=== PATIENT | male | born 1960 | race Two or more races ===

== ENCOUNTER 2021-08-14 07:48 | Outpatient (REF) | payer OTHER, SELFPAY ==
--- NOTE | ~2021-08-14 | US_ITS ---
EXAMINATION: US ABDOMEN COMPLETE CLINICAL INFORMATION: Abnormal levels of other serum enzymes. COMPARISON: None TECHNIQUE: Real-time imaging of the abdominal viscera. FINDINGS: PANCREAS: Visualized proximal pancreas is normal. The tail of the pancreas is obscured by bowel gas. ABDOMINAL AORTA: Portions of the proximal aorta are obscured by bowel gas. The visualized mid to distal aorta is normal in caliber. INFERIOR VENA CAVA: Visualized portions are normal. LIVER: Normal. The liver is normal in size. The liver contour is normal. Parenchymal echogenicity is normal. No focal hepatic lesion. There is no intrahepatic biliary duct dilatation seen. GALLBLADDER: Normal. The gallbladder is physiologically distended without evidence of stones, sludge, polyps, wall thickening or pericholecystic fluid. COMMON BILE DUCT: Normal in caliber measuring 0.3 cm in diameter. RIGHT KIDNEY: Normal. No hydronephrosis. No renal calculi or focal parenchymal lesions. The kidney measures 13.1 cm in maximum dimension. LEFT KIDNEY: 1.1 cm anechoic cyst of the upper pole of the left kidney. No hydronephrosis or renal calculi. The kidney measures 12.3 cm in maximum dimension. SPLEEN: Normal. The spleen measures 12.3 cm in maximum dimension. FREE FLUID: None. US/US abdomen complete IMPRESSION: Normal sonographic appearance of the liver and biliary tree.
== END 2021-08-14 07:49 | disposition home or self-care (01) ==
LOC: HO.US 07:48
PROVIDERS: Visit Provider Physician Assistant
DX: R74.8 Abnormal levels of other serum enzymes (principal)
CPT/HCPCS: 76700

== ENCOUNTER 2021-09-09 08:01 | Outpatient (REF) | payer OTHER, SELFPAY ==
[2021-09-09 10:15] LABS: Estimated Average Glucose 114 mg/dL; Hemoglobin A1c % 5.6 %
[2021-09-09 11:11] LABS: Alanine Aminotransferase 31 U/L (0-40); Albumin Level 4.9 g/dL (3.5-5.0); Alkaline Phosphatase 75 U/L (39-117); Anion Gap 11 (12-20); Aspartate Amino Transferase 33 U/L (5-37); Bilirubin Total 0.5 mg/dL (0.0-1.0); Blood Urea Nitrogen 18 mg/dL (9-16); Calcium 9.9 mg/dL (8.4-10.2); Carbon Dioxide 28 mmol/L (22-29); Chloride 104 mmol/L (96-108); Cholesterol 182 mg/dL; Estimated Glomerular Filt Rate > 60; Glucose Fasting 109 mg/dL (60-99); HDL Cholesterol 33 mg/dL; LDL Cholesterol Calculated 113 mg/dl; Potassium 5.1 mmol/L (3.3-5.1); Sodium 138 mmol/L (135-145); Total Protein 7.9 g/dL (6.5-8.0); Triglycerides 183 mg/dL
== END 2021-09-09 08:02 | disposition home or self-care (01) ==
LOC: HO.LAB 08:01
PROVIDERS: PCP Physician Assistant; Visit Provider Physician Assistant
DX: E78.1 Pure hyperglyceridemia (principal); I10 Essential (primary) hypertension
CPT/HCPCS: 36415; 80053; 80061; 83036; 84443

== ENCOUNTER 2021-12-23 07:58 | Outpatient (REF) | payer OTHER, SELFPAY ==
[2021-12-23 08:46] LABS: Hematocrit 43.5 % (42.0-52.0); Mean Corpuscular HGB Conc 34.5 g/dl (31.0-36.0); Mean Corpuscular Hemoglobin 32.5 pg (27.0-33.0); Mean Corpuscular Volume 94.2 fL (80.0-98.0); Mean Platelet Volume 9.3 fL (9.4-12.4); Platelet Count 218 X10*3/uL (160-400); Red Blood Count 4.62 X10*6/uL (4.60-5.80); Red Cell Distribution Width 12.1 % (11.0-16.0); White Blood Count 6.4 X10*3/uL (4.8-10.8)
[2021-12-23 08:53] LABS: Estimated Average Glucose 117 mg/dL; Hemoglobin A1c % 5.7 %
[2021-12-23 09:08] LABS: Alanine Aminotransferase 25 U/L (0-40); Albumin Level 4.6 g/dL (3.5-5.0); Alkaline Phosphatase 71 U/L (39-117); Anion Gap 14 (12-20); Aspartate Amino Transferase 28 U/L (5-37); Bilirubin Total 0.8 mg/dL (0.0-1.0); Blood Urea Nitrogen 18 mg/dL (9-16); Calcium 9.7 mg/dL (8.4-10.2); Carbon Dioxide 25 mmol/L (22-29); Chloride 103 mmol/L (96-108); Estimated Glomerular Filt Rate > 60; Glucose Fasting 101 mg/dL (60-99); Potassium 4.4 mmol/L (3.3-5.1); Sodium 138 mmol/L (135-145); Total Protein 7.5 g/dL (6.5-8.0)
[2021-12-23 09:33] LABS: Prostate Specific Antigen Scr 3.27 ng/mL (<0.05-4.0); TSH reflex Free T4 1.56 uIU/mL (0.32-4.0)
[2021-12-23 09:36] LABS: Creatinine Urine 104.63 mg/dL; Microalbum/Creatinine Ratio Ur 30.5 ug/mg cr
== END 2021-12-23 07:59 | disposition home or self-care (01) ==
LOC: HO.LAB 07:58
PROVIDERS: PCP Physician Assistant; Visit Provider Physician Assistant
DX: Z12.5 Encounter for screening for malignant neoplasm of prostate (principal); I10 Essential (primary) hypertension
CPT/HCPCS: 36415; 80053; 82043; 83036; 84153; 84443; 85027

== ENCOUNTER 2022-05-31 06:21 | Day surgery (SDC) | payer OTHER, SELFPAY ==
[2022-05-29 10:14] VITALS: BMI 30.9
--- NOTE | 2022-05-30 08:33 | P.CONAN_ITS ---
Documented by User: Jessa Romeo NP 05/30/22 08:34 HPI - Anesthesia Eval Consult details Narrative: 61yo M for Colonoscopy PMFSH Active Problems Active Problems: All Active Problems (Updated 12/20/21 @ 13:41 by Nilay Hammer PA-C) Urinary frequency (Acute) Elevated fasting blood sugar (Acute) Elevated liver enzymes (Acute) Colon polyp (Acute) Annual physical exam (Acute) Obese (Acute) Abdominal bloating (Acute) Hypertriglyceridemia (Acute) HTN (hypertension) (Acute) Past Medical History Medical History (Updated 05/31/22 @ 06:28 by Shakira Hernandez, RN) HTN (hypertension) Hx of renal calculi Hypertriglyceridemia Family History Family History (Updated 05/07/22 @ 13:46 by Nilay Hammer PA-C) Father Advanced cardiac disease Mother CAD (coronary artery disease) Diabetes Brother Diabetes Multiple myeloma Prostate cancer Surgical History Surgical History (Updated 05/31/22 @ 06:29 by Shakira Hernandez, RN) History of appendectomy History of esophagogastroduodenoscopy (EGD) History of inguinal hernia repair Hx of colonoscopy Hx of cystoscopy Social History Social History (Updated 05/07/22 @ 13:47 by Nilay Hammer PA-C) Housing: House Alcohol intake: never Patient Tobacco Use Status: Never used Tobacco e-Cigarette/Vaping Use: Never Used Second Hand Smoke Exposure: No Use of substances other than those prescribed or required for medical reasons: No Advance Directives: No Advance Directives Information Provided: Yes service: No Current occupational status: employed 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 Cognitive needs: No Hearing needs: No Vision needs: Yes Meds Allergies Allergy/AdvReac Type Severity Reaction Status Date / Time No Known Allergies Allergy Mild NONE Verified 05/07/22 13:42 Exam Exam Date and Time: May 30, 2022 0833 Height,Weight and Vital Signs: Height 5 ft 11 in Weight 100.698 kg Pertinent Lab Results Pertinent Lab Results: Laboratory Tests 12/23/21 12/23/21 08:21 08:21 WBC 6.4 Hgb 15.0 Hct 43.5 Plt Count 218 Sodium 138 Potassium 4.4 Chloride 103 Carbon Dioxide 25 BUN 18 H Creatinine 0.84 Assessment and Plan Assessment Anesthesia Assessment: Chart Reviewed Documented by User: Carole Liao MD 05/31/22 09:33 PMFSH Past Medical History Medical History (Updated 05/31/22 @ 06:28 by Shakira Hernandez, RN) HTN (hypertension) Hx of renal calculi Hypertriglyceridemia Family History Family History (Updated 05/07/22 @ 13:46 by Nilay Hammer PA-C) Father Advanced cardiac disease Mother CAD (coronary artery disease) Diabetes Brother Diabetes Multiple myeloma Prostate cancer Family history of problems with anesthesia: No Surgical History Surgical History (Updated 05/31/22 @ 06:29 by Shakira Hernandez RN) History of appendectomy History of esophagogastroduodenoscopy (EGD) History of inguinal hernia repair Hx of colonoscopy Hx of cystoscopy History of Problems with Anesthesia: No Social History Social History (Updated 05/07/22 @ 13:47 by Nilay Hammer PA-C) Housing: House Alcohol intake: never Patient Tobacco Use Status: Never used Tobacco e-Cigarette/Vaping Use: Never Used Second Hand Smoke Exposure: No Use of substances other than those prescribed or required for medical reasons: No Advance Directives: No Advance Directives Information Provided: Yes service: No Current occupational status: employed 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 Cognitive needs: No Hearing needs: No Vision needs: Yes Meds Allergies Allergy/AdvReac Type Severity Reaction Status Date / Time No Known Allergies Allergy Mild NONE Verified 05/07/22 13:42 Exam Airway Mallampati Class: II TM Dist: >3cm Neck ROM: Full Loose/Missing/Broken Teeth: No Heart: rr Lungs: cta Assessment and Plan Final Anesthetic Review Family History of Problems with Anesthesia: No History of Problems with Anesthesia: No NPO: Yes ASA Class: II Final Preanesthetic Review: No Changes in Pt Med Stat, Meds/Allgs Chart Reviewed and Consent Obtained/Reviewed Patient Risk: Low Procedure Risk: Low Anesthetic Plan Anesthetic Plan: MAC: Disposition: Standard PACU
[2022-05-31 06:34] VITALS: BP 152/92; PULSE 87; RESP 15; TEMP 36.7; O2SAT 97
[2022-05-31] MEDS: Lactated Ringers 1,000 ML 100 ML IVCONT (06:52)
--- NOTE | 2022-05-31 07:43 | MHC.SHP ---
Pre-Procedural Eval Section A Date of Service: 05/31/22 Section B Chief Complaint: Personal history of colonic polyps Details of Present Illness: Surg hx: History of appendectomy History of esophagogastroduodenoscopy (EGD) History of inguinal hernia repair Hx of colonoscopy Relevant Family History (Specify if Yes): No Relevant Social History: None Present Medications: see Short Stay Collaborative assessment Allergies: Allergies Allergy/AdvReac Type Severity Reaction Status Date / Time No Known Allergies Allergy Mild NONE Verified 05/07/22 13:42 Review of Systems Review of Systems Comment: Ten point ROS negative Exam Exam Comment: Gen appear: No acute distress HEENT: no icterus Chest: No overt resp distress Abd: soft, nontender, nondistended Psych: Stable affect, answering questions appropriately Neuro: A/Ox3 noted to move all extremities spontaneously Ext: no peripheral edema Plan Diagnosis/Plan: Unchanged I have reviewed the history and physical and performed a pertinent physical examination on my patient. No changes have occurred unless specified. Time Spent With Patient Time: Total time managing care of this patient today ____ minutes.
--- NOTE | 2022-05-31 07:44 | P.OP_ITS ---
Operative Note Operative Note Date of Service: 05/31/22 Narrative: Procedure: Colonoscopy Indication: Personal history of polyps Endoscopist: Tammi Turner MD Anesthesia Provider: Dr Carole Liao Anesthesia type: MAC Instrument: Olympus [id number]-[id number] Consent: Indication, risks vs benefits, and alternatives were discussed with the patient who gave written informed consent to proceed. EKG, pulse, pulse oximetry and blood pressure were monitored throughout the procedure. Please see anesthesia flowsheet. Procedure: The patient was brought to the procedure room and placed in the left lateral decubitus position. IV medications were administered by the anesthesia provider in attendance. A digital rectal exam was performed which was normal. A distal attachment cap was affixed to the tip of the scope and the colonoscope was then inserted through the anus and advanced through the colon to the cecum at 85 cm,and terminal ileum. Mucosa was carefully examined under high definition white light as the instrument was slowly withdrawn in a retrograde panoramic fashion. Retroflexion was performed in rectum. The procedure was not difficult. There were no immediate obvious complications. The quality of the prep was BBPS: 2+2+2 = adequate Withdrawal time 16 minutes. Limitations: No limitations. Findings: Mucosa: Normal to cecum and terminal ileum. Protruding lesions: * 3 sessile polyp of size 3-5 mm in ascending colon. Cold snare polypectomy was performed. The polyps were completely removed and retrieved. * Large internal hemorrhoids without stigmata of recent bleeding. Impression: 1. Normal colon mucosa 2. Total of 3 polyps removed from ascending colon. 3. Internal hemorrhoids Recommendations: - Follow path results. - Repeat colonoscopy in 3-5 years depending on results.
--- NOTE | 2022-05-31 08:19 | PC.NURSE ---
Report given to Dennis Guardado RN at 0740 - time when patient left [facility] into endoscopy
[2022-05-31 08:24] VITALS: BP 124/68; PULSE 80; RESP 16; TEMP 36.6; O2SAT 95
[2022-05-31 08:39] VITALS: BP 115/76; PULSE 85; RESP 20; O2SAT 96
[2022-05-31 08:53] VITALS: BP 120/78; PULSE 78; RESP 16; TEMP 36.6; O2SAT 98
== END 2022-05-31 09:37 | disposition home or self-care (01) ==
PROVIDERS: PCP Physician Assistant; Visit Provider Internal Medicine
PROC: 0DJD8ZZ Inspection of Lower Intestinal Tract, Via Natural or Artificial Opening Endoscopic (ICD-10-PCS; CPT 45378; principal; 2022-05-31 07:30)
DX: Z12.11 Encounter for screening for malignant neoplasm of colon (principal); D12.2 Benign neoplasm of ascending colon; K64.8 Other hemorrhoids; Z86.010 Personal history of colon polyps; I10 Essential (primary) hypertension
CPT/HCPCS: 45385; 88305; J2250; J2405

== ENCOUNTER → 2022-08-01 15:50 | Outpatient (BNVA) | payer OTHER, SELFPAY | PROVIDERS: PCP Physician Assistant; Visit Provider Internal Medicine ==

== ENCOUNTER 2022-10-31 07:29 | Outpatient (REF) | payer OTHER, SELFPAY ==
[2022-10-31 07:47] LABS: Hematocrit 42.1 % (42.0-52.0); Hemoglobin 14.4 g/dl (14.0-18.0); Mean Corpuscular HGB Conc 34.2 g/dl (31.0-36.0); Mean Corpuscular Hemoglobin 32.5 pg (27.0-33.0); Platelet Count 201 X10*3/uL (160-400); Red Blood Count 4.43 X10*6/uL (4.60-5.80); Red Cell Distribution Width 12.6 % (11.0-16.0); White Blood Count 7.8 X10*3/uL (4.8-10.8)
[2022-10-31 08:16] LABS: Alanine Aminotransferase 32 U/L (0-40); Albumin Level 4.5 g/dL (3.5-5.0); Alkaline Phosphatase 59 U/L (39-117); Anion Gap 11 (12-20); Aspartate Amino Transferase 38 U/L (5-37); Bilirubin Total 0.7 mg/dL (0.0-1.0); Blood Urea Nitrogen 16 mg/dL (9-16); Calcium 9.4 mg/dL (8.4-10.2); Carbon Dioxide 26 mmol/L (22-29); Chloride 107 mmol/L (96-108); Cholesterol 150 mg/dL (<200); Estimated Glomerular Filt Rate > 60; Glucose Fasting 107 mg/dL (60-99); HDL Cholesterol 31 mg/dL (>40); LDL Cholesterol Calculated 86 mg/dL (<100); Potassium 4.6 mmol/L (3.3-5.1); Sodium 139 mmol/L (135-145); Total Protein 7.4 g/dL (6.5-8.0); Triglycerides 166 mg/dL (<150)
[2022-10-31 08:30] LABS: Prostate Specific Antigen Scr 6.84 ng/mL (<0.05-4.0)
[2022-10-31 08:33] LABS: TSH reflex Free T4 1.58 uIU/mL (0.32-4.0)
[2022-10-31 08:38] LABS: Creatinine Urine 160.21 mg/dL; Microalbum/Creatinine Ratio Ur 30.5 ug/mg cr (<30)
== END 2022-10-31 07:30 | disposition home or self-care (01) ==
LOC: HO.LAB 07:29
PROVIDERS: PCP Physician Assistant; Visit Provider Physician Assistant
DX: Z12.5 Encounter for screening for malignant neoplasm of prostate (principal); I10 Essential (primary) hypertension; E78.1 Pure hyperglyceridemia
CPT/HCPCS: 36415; 80053; 80061; 82043; 82570; 84153; 84443; 85027

== ENCOUNTER 2022-11-07 15:02 | Outpatient (AMB) | payer OTHER, SELFPAY ==
[2022-11-07 15:25] VITALS: BP 114/82; PULSE 88; RESP 16; O2SAT 97; BMI 30.8
--- NOTE | 2022-11-07 15:25 | A.OFFPC_ITS ---
Vital Signs 11/07/22 15:25 Height 5 ft 10 in Weight 214 lb 6 oz BMI 30.8 BP 114/82 Blood Pressure Location Lt brachial Position Sitting Respiration 16 Pulse 88 Pulse Source Pulse Oximeter Pulse Oximetry (%) 97 Oxygen Delivery Method Room Air Intake Visit Reasons: f/u HLD/ HTN Intake Note: Pt is here for F/U HTN and labs results. Building Architect Required: No Accompanied by: Self / Same As Patient Allergies No Known Allergies Allergy (Mild, Verified 11/07/22 15:48) NONE Medication List - Last Reconciled 11/07/22 by Nilay Hammer PA-C gemfibrozil 600 mg PO BID 90 days lisinopril-hydrochlorothiazide 20-12.5 mg 1 tab PO DAILY 90 days Tobacco use date assessed: 05/07/22 Dental Screening Dental Screen Date: 11/07/22 Did you have a dental visit in the last 12 months?: Yes Did you have a dental problem in the last 6 months where you did not have access to dental care?: No Was dental information given to patient?: Patient has dentist HPI f/u HLD/ HTN HPI Details Patient is a 62 year old male here today for follow-up visit. .? Patient's past medical history signif icant for hypertension and hyperlipidemia. .. Hypertension:? Patient continues Take his BP at home and reports 135-140 systolic.? Patient denies any headaches, chest discomfort palpitations.. PLAN: ? Will work extensively weight reduction and low-sodium diet with taking his medication.? Will continue to his blood pressure at current dose. .. Hypertriglyceridemia:? Continues to work extensively on lifestyle to reduce his eye cholesterol foods.? He has unfortunately gained weight since last office visit.? Continues on gemfibrozil 600 mg daily. Most recent triglycerides at 180 .. Labs: Reviewed labs with patient and noted improved triglycerides and a slight elevation in his fasting blood sugar. A1c is 6.0. Elevated PSA- noted elevated PSA as compared to fall. He does report having a brother whom was diagnosed with prostate cancer. He denies any urinary symptoms. PLAN: Due to patient's family history and recent elevation in PSA will refer to Urology. Laboratory Tests 09/09/21 09/09/21 12/23/21 08:59 08:59 08:21 Hgb Fasting Glucose 109 H 101 H Hemoglobin A1c % 5.7 Hgb A1c (Clinic) Triglycerides 183 LDL Cholesterol, C alc 113 PSA Screen Urine Microalbumin 12/23/21 10/31/22 10/31/22 08:21 07:38 07:38 Hgb 14.4 Fasting Glucose Hemoglobin A1c % Hgb A1c (Clinic) Triglycerides LDL Cholesterol, C alc 86 PSA Screen 3.27 Urine Microalbumin 10/31/22 10/31/22 10/31/22 07:38 07:38 07:40 Hgb Fasting Glucose 107 H Hemoglobin A1c % Hgb A1c (Clinic) Triglycerides 166 H LDL Cholesterol, C alc PSA Screen 6.84 H Urine Microalbumin 49.0 11/07/22 15:24 Hgb Fasting Glucose Hemoglobin A1c % Hgb A1c (Clinic) 6.0 Triglycerides LDL Cholesterol, C alc PSA Screen [facility] Medical History HTN (hypertension) Hx of renal calculi Hypertriglyceridemia Surgical History Hx of cystoscopy History of esophagogastroduodenoscopy (EGD) Hx of colonoscopy History of appendectomy History of inguinal hernia repair Family History Father Advanced cardiac disease Mother CAD (coronary artery disease) Diabetes Brother Diabetes Multiple myeloma Prostate cancer Social History Housing: House Alcohol intake: never Patient Tobacco Use Status: Never used Tobacco e-Cigarette/Vaping Use: Never Used Second Hand Smoke Exposure: No service: No Current occupational status: employed 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 Dennis Mcdowell, Carissa Mcclellan, Kaiden Singh and colleagues, with an educational flaquito from [employer]. Review of Systems Const Denies headache(s) Eyes Denies loss of vision ENT Denies vertigo, Denies dizziness, Denies headache(s) and Denies sore throat Card Denies chest pain, Denies leg edema and Denies lightheadedness Resp Denies cough, Denies hemoptysis and Denies wheezing GI Denies abdominal pain, Denies melena, Denies constipation, Denies diarrhea and Denies vomiting Denies dysuria, Denies urinary frequency and Denies urinary urgency Musc Denies arthralgias, Denies joint swelling, Denies numbness and Denies tingling Neuro Denies Abnormal speech present, Denies behavioral changes, Denies vertigo, Denies dizziness, Denies headache(s), Denies loss of vision, Denies memory loss, Denies numbness and Denies tingling Psych Denies anxiety, Denies behavioral changes, Denies depression, Denies memory loss and Denies panic attacks Michael/Lymph Denies easy bleeding and Denies easy bruising Aller/Immun Denies wheezing Physical exam (Primary Care) Vital Signs: Last Vital Signs Pulse 88 11/07/22 15:25 Resp 16 11/07/22 15:25 BP 114/82 11/07/22 15:25 Pulse Ox 97 11/07/22 15:25 Oxygen Delivery Method Room Air 11/07/22 15:25 BMI result Body Mass Index 30.8 BMI Assessment/Plan discussion: High Tobacco/Smoking Status: Tobacco use Status Tobacco use date assessed 05/07/22 11/07/22 15:25 Patient Tobacco Use Status Never used Tobacco 11/07/22 15:25 e-Cigarette/Vaping Use Never Used 11/07/22 15:25 Thrive Assessment: Date of Thrive Assessment Date Thrive assessed 09/26/21 11/07/22 15:25 Const General: healthy appearing, no acute distress, alert and awake Nutritional Appearance: well nourished Orientation/consciousness: oriented to person, oriented to place and oriented to time [facility] Ears: TM's normal bilaterally General nose exam: Normal nasal mucous membranes and turbinates present Eyes Conjunctivae: conjunctivae normal Sclerae: sclerae normal Pupils: Equal, round and reactive pupils present Neck Neck: Yes no lymphadenopathy and Yes no JVD Thyroid: Thyroid normal Carotids: no bruits Resp Effort & Inspection: normal respiratory effort and not tachypneic Auscultation: no crackles, no rales, no rhonchi and no wheezes Cardio Rate: regular rate Rhythm: regular rhythm Heart sounds: no murmurs and normal S1 and S2 GI Palpation (GI): Soft to palpation, nontender, no hepatomegaly and no splenomegaly Auscultation: normal bowel sounds Skin General skin exam: no rashes or lesions noted and dry skin Neuro General: oriented to person, oriented to place and oriented to time Cranial nerves: Yes Equal, round and reactive pupils present Speech: No Abnormal speech present Gait exam (Neuro): Normal gait present Motor exam (neuro): no tremor noted Extrem Right upper extremity: full ROM Left upper extremity: full ROM Right lower extremity: full ROM; no edema Left lower extremity: full ROM; no edema Psych Mental Status: mental status grossly normal Speech and movement: Normal speech and movement present Affect: normal affect Attitude: cooperative Thought process: Normal thought process present Results AMB Hemoglobin A1c AMB Hemoglobin A1c 6.0 % Last Edit by JEAN Kingston on 11/07/22 15:45 Results Reviewed Results Reviewed: Laboratory Last Values Hgb A1c (Clinic) 6.0 % (4.0-6.0) 11/07/22 15:24 Assessment and Plan Assessment & Plan (1) HTN (hypertension): Code(s): I10 - Essential (primary) hypertension Qualifiers: Hypertension type: essential hypertension Qualified Code(s): I10 - Essential (primary) hypertension Plan: Patient's blood pressure acceptable today in office. Will continue current antihypertensive medications with goal blood pressure to be below 140/90 (2) Elevated PSA: Code(s): R97.20 - Elevated prostate specific antigen [PSA] Plan: Noted elevated PSA, doubled since December of 2021. Does have brother with prostate cancer. He denies any nocturia or weak urinary stream. Will refer to Urology for evaluation. (3) Hypertriglyceridemia: Code(s): E78.1 - Pure hyperglyceridemia Plan: Patient's most recent lipid panel stable. Will hold gemfibrozil as patient's triglycerides reasonable. Goal triglycerides to be below 300. (4) Obese: Code(s): E66.9 - Obesity, unspecified Qualifiers: Body mass index: BMI 32.0-32.9 Obesity classification: adult class 1 (BMI 30 - 34.9) Obesity type: due to excess calories Serious obesity comorbidity presence: with serious comorbidity Qualified Code(s): E66.09 - Other obesity due to excess calories; Z68.32 - Body mass index [BMI] 32.0-32.9, adult Plan: Patient does understand his BMI is over 30 will work on being more physically active an Adapta better eating habits to reduce his weight. (5) Impaired glucose metabolism: Code(s): R73.09 - Other abnormal glucose Plan: Patient's most recent fasting blood sugar 107 and A1c is 6.0 today in office. He will work on low carbohydrate and low sugar diet. He is not interested in starting medication for his blood sugar at this time. Goal A1c is to be below 6.0. Orders: Orders AMB Hemoglobin A1c 11/07/22 R73.01 - Impaired fasting glucose Hemoglobin A1c Today E78.1 - Pure hyperglyceridemia, I10 - Essential (primary) hypertension, R73.09 - Other abnormal glucose Lipid Panel Today E78.1 - Pure hyperglyceridemia, I10 - Essential (primary) hypertension, R73.09 - Other abnormal glucose Prostate Specific Antigen Scr Today E78.1 - Pure hyperglyceridemia, I10 - Essential (primary) hypertension, R97.20 - Elevated prostate specific antigen [PSA], Z12.5 - Encounter for screening for malignant neoplasm of prostate Comprehensive [place]. Panel Fast Today E78.1 - Pure hyperglyceridemia, I10 - Essential (primary) hypertension, R73.09 - Other abnormal glucose Referrals Urology Referral R97.20 - Elevated prostate specific antigen [PSA] Medications: Discontinued gemfibrozil Discontinued Reason: Doctor's Order 600 mg PO BID 90 days 180 tabs 1RF E78.1 - Pure hyperglyceridemia Coding Level of Care Code Est Pt Level 4 (68481) Diagnoses Essential hypertension I10 Hypertension type: essential hypertension Elevated PSA R97.20 Hypertriglyceridemia E78.1 Class 1 obesity due to excess calories with serious comorbidity and body mass index (BMI) of 32.0 to 32.9 in adult E66.09; Z68.32 Body mass index: BMI 32.0-32.9 Obesity classification: adult class 1 (BMI 30 - 34.9) Obesity type: due to excess calories Serious obesity comorbidity presence: with serious comorbidity Impaired glucose metabolism R73.09
== END 2022-11-07 16:05 | disposition home or self-care (01) ==
PROVIDERS: Visit Provider Physician Assistant
DX: R73.01 Impaired fasting glucose (principal)
CPT/HCPCS: 83036; 99214

== ENCOUNTER 2023-01-15 12:33 | Outpatient (AMB) | payer OTHER, SELFPAY ==
--- NOTE | 2023-01-15 12:58 | A.OFFPC_ITS ---
Vital Signs 01/15/23 13:08 Height 5 ft 10 in Weight 208 lb BMI 29.8 BP 122/70 Blood Pressure Location Lt brachial Position Sitting Pulse 78 Pulse Source Pulse Oximeter Temp 95 F L Intake Visit Reasons: 01/28/23 for a prostatectomy. Intake Note: Patient is here for a Pre-op for prostatectomy scheduled with Tiffanie on 01/28/23 at the [facility]. 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 HPI Details Patient is a 62 year old male here today for preop visit.. Patient is due for total prostatectomy in January of 2023. This will be done at [facility] under general anesthesia. .? Patient's past medical history signif icant for hypertension and hyperlipidemia. Patient has no history of CVA, MO or Congestive heart failure. He is not on any anticoagulation or anti-platelet therapy. *Of note patient does have history of a bundle scarlett proc which was evident on EKG in May 2022. Today's EKG showing the same. Otherwise patient asymptomatic. .. Hypertension:? Blood pressure has been well controlled with current dose of lisinopril hydrochlorothiazide. Otherwise denies any headache, chest pain or dizziness. .. Hypertriglyceridemia:? Continues to work extensively on lifestyle to reduce his eye cholesterol foods.? He has unfortunately gained weight since last office visit.? Continues on gemfibrozil 600 mg daily. Most recent triglycerides at 180 Laboratory Tests 12/23/21 12/23/21 10/31/22 08:21 08:21 07:38 RBC 4.43 L Hgb 14.4 Fasting Glucose 101 H Hgb A1c (Clinic) PSA Screen 3.27 10/31/22 10/31/22 11/07/22 07:38 07:38 15:24 RBC Hgb Fasting Glucose 107 H Hgb A1c (Clinic) 6.0 PSA Screen 6.84 H Laboratory Tests 01/15/23 14:19 RBC 4.31 L Hgb 14.4 Creatinine 0.84 Hemoglobin A1c % 5.6 Cholesterol 169 PSA Screen 7.72 H TSH 1.98 PFSH Medical History (Updated 01/16/23 @ 08:16 by Nilay Hammer PA-C) HTN (hypertension) Hx of renal calculi Hypertriglyceridemia Surgical History Hx of cystoscopy History of esophagogastroduodenoscopy (EGD) Hx of colonoscopy History of appendectomy History of inguinal hernia repair Family History Father Advanced cardiac disease Mother CAD (coronary artery disease) Diabetes Brother Diabetes Multiple myeloma Prostate cancer Social History Housing: House Alcohol intake: never Patient Tobacco Use Status: Never used Tobacco e-Cigarette/Vaping Use: Never Used Second Hand Smoke Exposure: No service: No Current occupational status: employed 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 Cognitive needs: No Hearing needs: No Vision needs: Yes Questionnaire Thrive Questionnaire Date Thrive assessed: 01/15/23 I am a: Patient What is your living situation today?: I have a steady place to live Within the past 12 months, did the food you bought not last and you didn't have the money to get more?: Never true Within the past 12 months, did you worry whether your food would run out before you got money to buy more?: Never true Do you have trouble paying for medicines?: No Do you have trouble getting transportation to medical appointments?: No Do you have trouble paying your heating and electricity bill?: No Do you have trouble taking care of your child, family member or friend?: No Do you have trouble with day-to-day activities such as bathing, preparing meals, shopping, managing finances, etc.?: No Are you currently unemployed and looking for a job?: No Are you interested in more education?: No Please select the resources that you would like help with: None Currently or been in a relationship where the following occur: no concerns reported JACQUES-7 AMB Questionnaire JACQUES-7 Date JACQUES - 7 assessed: 05/07/22 Source: Developed by Drs. Dennis Mcdowell, Carissa Mcclellan, Kaiden Singh and colleagues, with an educational flaquito from [employer]. Review of Systems Const Denies headache(s) Eyes Denies loss of vision ENT Denies vertigo, Denies dizziness, Denies headache(s) and Denies sore throat Card Denies chest pain, Denies leg edema and Denies lightheadedness Resp Denies cough, Denies hemoptysis and Denies wheezing GI Denies abdominal pain, Denies melena, Denies constipation, Denies diarrhea and Denies vomiting Denies dysuria, Denies urinary frequency and Denies urinary urgency Musc Denies arthralgias, Denies joint swelling, Denies numbness and Denies tingling Neuro Denies Abnormal speech present, Denies behavioral changes, Denies vertigo, Denies dizziness, Denies headache(s), Denies loss of vision, Denies memory loss, Denies numbness and Denies tingling Psych Denies anxiety, Denies behavioral changes, Denies depression, Denies memory loss and Denies panic attacks Michael/Lymph Denies easy bleeding and Denies easy bruising Aller/Immun Denies wheezing Physical exam (Primary Care) Vital Signs: Last Vital Signs Temp 95 F L 01/15/23 13:08 Pulse 78 01/15/23 13:08 BP 122/70 01/15/23 13:08 BMI result Body Mass Index 29.8 Tobacco/Smoking Status: Tobacco use Status Tobacco use date assessed 05/07/22 01/15/23 12:58 Patient Tobacco Use Status Never used Tobacco 01/15/23 12:58 e-Cigarette/Vaping Use Never Used 01/15/23 12:58 Thrive Assessment: Date of Thrive Assessment Date Thrive assessed 01/15/23 01/15/23 13:11 Currently or been in a relationship where the following occur: no concerns reported Const General: healthy appearing, no acute distress, alert and awake Nutritional Appearance: well nourished Orientation/consciousness: oriented to person, oriented to place and oriented to time HENMT Ears: TM's normal bilaterally General nose exam: Normal nasal mucous membranes and turbinates present Eyes Conjunctivae: conjunctivae normal Sclerae: sclerae normal Pupils: Equal, round and reactive pupils present Neck Neck: Yes no lymphadenopathy and Yes no JVD Thyroid: Thyroid normal Carotids: no bruits Resp Effort & Inspection: normal respiratory effort and not tachypneic Auscultation: no crackles, no rales, no rhonchi and no wheezes Cardio Rate: regular rate Rhythm: regular rhythm Heart sounds: no murmurs and normal S1 and S2 GI Palpation (GI): Soft to palpation, nontender, no hepatomegaly and no splenomegaly Auscultation: normal bowel sounds Skin General skin exam: no rashes or lesions noted and dry skin Neuro General: oriented to person, oriented to place and oriented to time Cranial nerves: Yes Equal, round and reactive pupils present Speech: No Abnormal speech present Gait exam (Neuro): Normal gait present Motor exam (neuro): no tremor noted Extrem Right upper extremity: full ROM Left upper extremity: full ROM Right lower extremity: full ROM; no edema Left lower extremity: full ROM; no edema Psych Mental Status: mental status grossly normal Speech and movement: Normal speech and movement present Affect: normal affect Attitude: cooperative Thought process: Normal thought process present Office Procedures EKG Details: See scanned in document [id number], Complete Assessment and Plan Assessment & Plan (1) Pre-op evaluation: Code(s): Z01.818 - Encounter for other preprocedural examination Plan: Patient's low CV risk for needed procedure. Most recent labs and vitals today stable. EKG does show bundle-branch block which is similar to previous EKG in May 2022. Otherwise no cardiac symptoms. Blood pressure controlled. Patient is medically clear for needed prostectomy. (2) Elevated PSA: Code(s): R97.20 - Elevated prostate specific antigen [PSA] Plan: Due for total prostatectomy in 01/28/2023 (3) HTN (hypertension): Code(s): I10 - Essential (primary) hypertension Qualifiers: Hypertension type: essential hypertension Qualified Code(s): I10 - Essential (primary) hypertension Plan: Patient's hypertension well controlled with current dose of lisinopril hydrochlorothiazide. Goal blood pressures to remain below 140/90 Orders: Orders Basic Metabolic Panel 01/15/23 Z01.818 - Encounter for other preprocedural examination Complete Blood Count no Diff 01/15/23 Z01.818 - Encounter for other preprocedural examination AMB EKG-In Office Today Z01.818 - Encounter for other preprocedural examination Coding Level of Care Code Est Pt Level 4 (67183) Diagnoses Pre-op evaluation Z01.818 Elevated PSA R97.20 Essential hypertension I10 Hypertension type: essential hypertension CPT Codes EKG - CPT: 36516-[id number], Complete ([id number])
[2023-01-15 13:08] VITALS: BP 122/70; PULSE 78; TEMP 35; BMI 29.8
== END 2023-01-15 14:03 | disposition home or self-care (01) ==
PROVIDERS: PCP Physician Assistant; Visit Provider Physician Assistant
DX: Z01.818 Encounter for other preprocedural examination (principal); R97.20 Elevated prostate specific antigen [PSA]; I10 Essential (primary) hypertension
CPT/HCPCS: 93000; 99214

== ENCOUNTER 2023-01-15 14:09 | Outpatient (REF) | payer OTHER, SELFPAY ==
[2023-01-15 14:48] LABS: Hematocrit 41.2 % (42.0-52.0); Hemoglobin 14.4 g/dl (14.0-18.0); Mean Corpuscular Hemoglobin 33.4 pg (27.0-33.0); Mean Corpuscular Volume 95.6 fL (80.0-98.0); Mean Platelet Volume 9.4 fL (9.4-12.4); Platelet Count 202 X10*3/uL (160-400); Red Blood Count 4.31 X10*6/uL (4.60-5.80); Red Cell Distribution Width 12.3 % (11.0-16.0); White Blood Count 6.5 X10*3/uL (4.8-10.8)
[2023-01-15 15:03] LABS: Estimated Average Glucose 114 mg/dL; Hemoglobin A1c % 5.6 % (<6.0)
[2023-01-15 15:23] LABS: Alanine Aminotransferase 27 U/L (0-40); Albumin Level 4.7 g/dL (3.5-5.0); Alkaline Phosphatase 60 U/L (39-117); Anion Gap 13 (12-20); Aspartate Amino Transferase 32 U/L (5-37); Bilirubin Total 0.7 mg/dL (0.0-1.0); Blood Urea Nitrogen 20 mg/dL (9-16); Calcium 9.7 mg/dL (8.4-10.2); Carbon Dioxide 27 mmol/L (22-29); Chloride 102 mmol/L (96-108); Cholesterol 169 mg/dL (<200); Estimated Glomerular Filt Rate > 60; Glucose Fasting 86 mg/dL (60-99); Glucose Random 86 mg/dL (60-115); HDL Cholesterol 31 mg/dL (>40); LDL Cholesterol Calculated 94 mg/dL (<100); Sodium 138 mmol/L (135-145); Triglycerides 222 mg/dL (<150)
[2023-01-15 15:31] LABS: Prostate Specific Antigen Scr 7.72 ng/mL (<0.05-4.0)
[2023-01-15 15:40] LABS: TSH reflex Free T4 1.98 uIU/mL (0.32-4.0)
== END 2023-01-15 14:10 | disposition home or self-care (01) ==
LOC: HO.LAB 14:09
PROVIDERS: PCP Physician Assistant; Visit Provider Physician Assistant
DX: Z01.818 Encounter for other preprocedural examination (principal); Z12.5 Encounter for screening for malignant neoplasm of prostate; E78.1 Pure hyperglyceridemia; R73.09 Other abnormal glucose; I10 Essential (primary) hypertension
CPT/HCPCS: 36415; 80048; 80053; 80061; 83036; 84153; 84443; 85027

== ENCOUNTER 2023-11-02 07:48 | Outpatient (REF) | payer OTHER, SELFPAY ==
[2023-11-02 08:54] LABS: Hematocrit 39.8 % (42.0-52.0); Hemoglobin 13.8 g/dl (14.0-18.0); Mean Corpuscular HGB Conc 34.7 g/dl (31.0-36.0); Mean Corpuscular Hemoglobin 33.3 pg (27.0-33.0); Mean Corpuscular Volume 96.1 fL (80.0-98.0); Mean Platelet Volume 9.2 fL (9.4-12.4); Platelet Count 272 X10*3/uL (160-400); Red Blood Count 4.14 X10*6/uL (4.60-5.80)
[2023-11-02 09:31] LABS: Alanine Aminotransferase 28 U/L (0-40); Albumin Level 4.5 g/dL (3.5-5.0); Alkaline Phosphatase 84 U/L (39-117); Anion Gap 12 (12-20); Aspartate Amino Transferase 32 U/L (5-37); Bilirubin Total 0.3 mg/dL (0.0-1.0); Blood Urea Nitrogen 16 mg/dL (9-16); Calcium 10.1 mg/dL (8.4-10.2); Carbon Dioxide 26 mmol/L (22-29); Chloride 106 mmol/L (96-108); Cholesterol 148 mg/dL (<200); Estimated Glomerular Filt Rate > 60; Glucose Fasting 116 mg/dL (60-99); HDL Cholesterol 28 mg/dL (>40); LDL Cholesterol Calculated 84 mg/dL (<100); Potassium 4.4 mmol/L (3.3-5.1); Sodium 140 mmol/L (135-145); Total Protein 7.7 g/dL (6.5-8.0); Triglycerides 183 mg/dL (<150)
[2023-11-02 09:58] LABS: Prostate Specific Antigen Scr < 0.10 ng/mL (<0.05-4.0)
== END 2023-11-02 07:49 | disposition home or self-care (01) ==
LOC: HO.LAB 07:48
PROVIDERS: PCP Physician Assistant; Visit Provider Physician Assistant
DX: Z01.818 Encounter for other preprocedural examination (principal); Z12.5 Encounter for screening for malignant neoplasm of prostate; R97.20 Elevated prostate specific antigen [PSA]; E78.1 Pure hyperglyceridemia; I10 Essential (primary) hypertension; R73.09 Other abnormal glucose
CPT/HCPCS: 36415; 80053; 80061; 84153; 85027

== ENCOUNTER 2023-11-14 15:10 | Outpatient (AMB) | payer OTHER, SELFPAY ==
--- NOTE | 2023-11-14 15:20 | MHC.PC.OV ---
Vital Signs 11/14/23 15:24 Height 5 ft 10 in Weight 219 lb BMI 31.4 BP 130/80 Blood Pressure Location Lt brachial Position Sitting Pulse 84 Pulse Source Pulse Oximeter Pulse Oximetry (%) 97 Oxygen Delivery Method Room Air Intake Visit Reasons: Annual Exam Intake Note: Patient is here today for a physical. 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 Prostate cancer: Patient is status post total prostatectomy though unfortunately was found to have pelvic lymph node involvement and will be starting up with radiation in near future. He has been on Lupron injections which he reports some side effects (arthralgias and sweating). Patient continues to work full-time .. Hypertension:? Blood pressure has been well controlled with current dose of lisinopril hydrochlorothiazide. Otherwise denies any headache, chest pain or dizziness. .. Hypertriglyceridemia:? Continues to work extensively on lifestyle to reduce his eye cholesterol foods.? He has unfortunately gained weight since last office visit.? Continues on gemfibrozil 600 mg daily. Most recent triglycerides at 180. Colonoscopy: UTD with colonoscopy - Vaccine: Up-to-date with COVID vaccine, up-to-date with tetanus vaccine, declines flu vaccine. Laboratory Tests 01/15/23 11/02/23 14:19 08:04 Hgb 13.8 L Creatinine 0.76 Fasting Glucose 86 116 H Triglycerides 222 H 183 H LDL Cholesterol, C alc 94 84 PSA Screen 7.72 H < 0.10 PFSH Medical History HTN (hypertension) Hx of renal calculi Hypertriglyceridemia Surgical History Hx of cystoscopy History of esophagogastroduodenoscopy (EGD) Hx of colonoscopy History of appendectomy History of inguinal hernia repair Family History Father Advanced cardiac disease Mother CAD (coronary artery disease) Diabetes Brother Diabetes Multiple myeloma Prostate cancer Social History Housing: House Alcohol intake: never Patient Tobacco Use Status: Never used Tobacco e-Cigarette/Vaping Use: Never Used Second Hand Smoke Exposure: No service: No Current occupational status: employed 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 1. Little interest or pleasure in doing things: not at all 2. Feeling down, depressed, or hopeless: not at all 3. Trouble falling or staying asleep, or sleeping too much: not at all 4. Feeling tired or having little energy: not at all 5. Poor appetite or overeating: not at all 6. Feeling bad about yourself - or that you are a failure or have let yourself or your family down: not at all 7. Trouble concentrating on things, such as reading the newspaper or watching television: not at all 8. Moving or speaking so slowly that other people could have noticed. Or the opposite - being so fidgety or restless that you have been moving around a lot more than usual: not at all 9. Thoughts that you would be better off or of hurting yourself in some way: not at all Total score: 0 Depression Screening Interpretation: Negative Depression Screening Done: Yes 19198 - PHQ-9 Billing: Yes Source: Developed by Drs. Dennis Mcdowell, Carissa Mcclellan, Kaiden Singh and colleagues, with an educational flaquito from [employer]. Thrive Questionnaire Date Thrive assessed: 11/14/23 I am a: Patient What is your living situation today?: I have a steady place to live Within the past 12 months, did the food you bought not last and you didn't have the money to get more?: Never true Within the past 12 months, did you worry whether your food would run out before you got money to buy more?: Never true Do you have trouble paying for medicines?: No Do you have trouble getting transportation to medical appointments?: No Do you have trouble paying your heating and electricity bill?: No Do you have trouble taking care of your child, family member or friend?: No Do you have trouble with day-to-day activities such as bathing, preparing meals, shopping, managing finances, etc.?: No Are you currently unemployed and looking for a job?: No Are you interested in more education?: No Please select the resources that you would like help with: None Currently or been in a relationship where the following occur: No concerns reported THRIVE Score: 0 AUDIT C Alcohol Use Questionnaire (AUDIT-C) 1. How often do you have a drink containing alcohol?: Never 3. How often do you have six or more drinks on one occasion?: Never Total Score: 0 JACQUES-7 AMB Questionnaire JACQUES-7 Date JACQUES - 7 assessed: 11/14/23 Feeling nervous, anxious, or on edge: 0 = Not at all Not being able to stop or control worryin = Not at all Worrying too much about different things: 0 = Not at all Trouble relaxin = Not at all Being so restless that it is hard to sit still: 0 = Not at all Becoming easily annoyed or irritable: 0 = Not at all Feeling afraid as if something awful might happen: 0 = Not at all Total JACQUES-7 score (0-4 normal; 5-9 mild; 10-14 moderate; 15-21 severe): 0 Source: Developed by Drs. Dennis Mcdowell, Carissa Mcclellan, Kaiden Singh and colleagues, with an educational flaquito from [employer]. JACQUES-7 Assessment Billing JACQUES-7 Assessment Tool: JACQUES-7 Assessment 36010 Review of Systems Const Denies body aches, Denies chills, Denies excessive sweating, Denies fatigue, Denies fever(s) and Denies headache(s) Eyes Denies blurry vision ENT Denies dysphagia, Denies vertigo, Denies dizziness, Denies headache(s), Denies hearing loss and Denies tinnitus Card Denies chest pain, Denies chest pain with activity, Denies syncope, Denies irregular heart rhythm and Denies dyspnea Resp Denies chest congestion, Denies cough, Denies hemoptysis, Denies dyspnea and Denies wheezing GI Denies abdominal pain, Denies melena, Denies hematochezia, Denies coffee ground emesis, Denies dysphagia, Denies diarrhea, Denies nausea and Denies vomiting Denies difficulty urinating, Denies dysuria, Denies urinary frequency, Denies urinary hesitancy and Denies urinary urgency Musc Denies arthralgias, Denies limited range of motion, Denies muscle cramps and Denies muscle weakness Skin/Breast Denies rash and Denies skin ulcer Neuro Denies Abnormal speech present, Denies confusion, Denies vertigo, Denies dizziness, Denies syncope, Denies headache(s), Denies memory loss and Denies seizure-like activity Psych Denies anxiety, Denies confusion, Denies depression, Denies memory loss, Denies panic attacks and Denies paranoia Endo Denies excessive sweating, Denies fatigue, Denies flushing, Denies polydipsia and Denies polyuria Aller/Immun Denies wheezing Physical exam (Primary Care) Vital Signs: Last Vital Signs Pulse 84 11/14/23 15:24 BP 130/80 11/14/23 15:24 Pulse Ox 97 11/14/23 15:24 Oxygen Delivery Method Room Air 11/14/23 15:24 BMI result Body Mass Index 31.4 Tobacco/Smoking Status: Tobacco use Status Tobacco use date assessed 05/07/22 11/14/23 15:26 Patient Tobacco Use Status Never used Tobacco 11/14/23 15:26 e-Cigarette/Vaping Use Never Used 11/14/23 15:26 PHQ-9: PHQ-9 Score PHQ-9: Total score 0 11/14/23 15:37 Depression Screening Interpretation: Negative Thrive Assessment: Date of Thrive Assessment Date Thrive assessed 11/14/23 11/14/23 15:26 Currently or been in a relationship where the following occur: No concerns reported Const General: cooperative, comfortable, no acute distress, alert and awake; No confusion Orientation/consciousness: oriented to person, oriented to place, patient oriented x3 and No confusion HENMT Head: Yes normocephalic Ears: external ears normal and TM's normal bilaterally Face and sinus: No sinus tenderness Mouth: Normal oral and palatal mucosa present and tongue normal Teeth and gingiva: dentition normal and gingiva normal Throat: Yes posterior oropharynx normal, Yes tonsils normal and Yes uvula midline Eyes Conjunctivae: conjunctivae normal Sclerae: sclerae normal Pupils: Equal, round and reactive pupils present EOM: EOMs intact bilaterally Direct Ophthalmoscopy: No no photophobia Neck Neck: Yes no lymphadenopathy, No tender and Yes no JVD Thyroid: Thyroid normal Carotids: no bruits Chest Chest palpation & inspection: no tenderness Resp Effort & Inspection: normal respiratory effort, no audible wheezes, not labored and no stridor Auscultation: no crackles, no rales, no rhonchi and no wheezes Cardio Jugular venous distension: no JVD Rate: regular rate, not bradycardic and not tachycardic Rhythm: regular rhythm Bruits: no carotid bruits Peripheral pulses: Peripheral pulses 2+ throughout GI Inspection: Yes normal to inspection, No abdominal wall ecchymosis and No visible herniation Palpation (GI): Soft to palpation, nontender, no guarding, not rigid and No hepatosplenomegaly present Auscultation: normoactive bowel sounds General: Yes no CVA tenderness Back/Spine/Pelvis Back: no CVA tenderness and No back tenderness Cervical Spine: cervical ROM normal Thoracic/Lumbar Spine: thoracic and lumbar spine normal to inspection, straight leg raise negative bilaterally, No thoraco-lumbar ROM limited and No lumbar spinal tenderness Skin Lesions: no lesions Rashes: no rashes Wounds: no wounds Neuro General: oriented to person, oriented to place, patient oriented x3, CN's II-XI intact bilaterally and No confusion Cranial nerves: Yes Equal, round and reactive pupils present and Yes Normal accommodation reflex present Cognition (Neuro): normal cognition Speech: No Abnormal speech present Gait exam (Neuro): Normal gait present Motor exam (neuro): 5/5 motor strength present throughout Extrem Right upper extremity: full ROM; no cyanosis Left upper extremity: full ROM; no cyanosis Right lower extremity: no edema Left lower extremity: no edema Psych Appearance: grossly normal Mental Status: mental status grossly normal Affect: normal affect Attitude: cooperative Thought process: Normal thought process present Assessment and Plan Assessment & Plan (1) Annual physical exam: Code(s): Z00.00 - Encounter for general adult medical examination without abnormal findings (2) HTN (hypertension): Code(s): I10 - Essential (primary) hypertension Qualifiers: Hypertension type: essential hypertension Qualified Code(s): I10 - Essential (primary) hypertension Plan: Patient's hypertension well controlled with current dose of lisinopril hydrochlorothiazide. Goal blood pressures to remain below 140/90 (3) Prostate cancer: Code(s): C61 - Malignant neoplasm of prostate Plan: As per HPI patient is status post total prostatectomy. Continues to follow urology [facility]. Unfortunately had pelvic lymph node involvement and will be starting radiation in near future. He continues with Lupron injections. (4) Impaired glucose metabolism: Code(s): R73.09 - Other abnormal glucose Plan: Most recent fasting blood sugar slightly elevated. He will work on lifestyle and dietary modifications to reduce his fasting blood sugars. (5) Arthritis: Code(s): M19.90 - Unspecified osteoarthritis, unspecified site Plan: Patient reporting bilateral hand and knee pain ever since starting Lupron injections. He reports his arthritis pain is worse in the morning and gets better throughout the day. Will supply patient with a anti arthritic medication to use on an as needed basis. Orders: Orders Hemoglobin A1c 11/14/23 R73.09 - Other abnormal glucose Comprehensive [place]. Panel Fast 11/14/23 R73.09 - Other abnormal glucose Complete Blood Count no Diff 11/14/23 R73.09 - Other abnormal glucose Medications: New meloxicam 15 mg PO DAILY 30 tabs 2RF 30 days M19.90 - Unspecified osteoarthritis, unspecified site Coding Level of Care Code Est Pt Prev Care 40-64y(83317) Diagnoses Annual physical exam Z00.00 Essential hypertension I10 Hypertension type: essential hypertension Prostate cancer C61 Impaired glucose metabolism R73.09 Arthritis M19.90 Additional Codes JACQUES-7 Assessment Billing - JACQUES-7 Assessment Tool: JACQUES-7 Assessment 24588 ([id number])
[2023-11-14 15:24] VITALS: BP 130/80; PULSE 84; O2SAT 97; BMI 31.4
== END 2023-11-14 16:00 | disposition home or self-care (01) ==
PROVIDERS: PCP Physician Assistant; Visit Provider Physician Assistant
DX: Z00.00 Encounter for general adult medical examination without abnormal findings (principal); I10 Essential (primary) hypertension; C61 Malignant neoplasm of prostate; R73.09 Other abnormal glucose; M19.90 Unspecified osteoarthritis, unspecified site

== ENCOUNTER → 2023-11-14 15:10 | Outpatient (BNVA) | payer OTHER, SELFPAY | PROVIDERS: PCP Physician Assistant; Visit Provider Physician Assistant | DX: Z00.01 Encounter for general adult medical examination with abnormal findings (principal); I10 Essential (primary) hypertension; C61 Malignant neoplasm of prostate; R73.09 Other abnormal glucose; M19.90 Unspecified osteoarthritis, unspecified site | CPT/HCPCS: 96127 ==

== ENCOUNTER 2024-05-30 08:15 | Outpatient (REF) | payer BC, SELFPAY ==
[2024-05-30 09:00] LABS: Hematocrit 40.1 % (42.0-52.0); Hemoglobin 14.1 g/dl (14.0-18.0); Mean Corpuscular HGB Conc 35.2 g/dl (31.0-36.0); Mean Corpuscular Hemoglobin 33.7 pg (27.0-33.0); Mean Corpuscular Volume 95.7 fL (80.0-98.0); Mean Platelet Volume 8.8 fL (9.4-12.4); Platelet Count 228 X10*3/uL (160-400); Red Blood Count 4.19 X10*6/uL (4.60-5.80); Red Cell Distribution Width 11.9 % (11.0-16.0); White Blood Count 5.1 X10*3/uL (4.8-10.8)
[2024-05-30 09:20] LABS: Estimated Average Glucose 140 mg/dL; Hemoglobin A1C 183.9166 umol/L; Hemoglobin A1c % 6.5 % (<6.0); Total Hemoglobin (HGBA1C) 3847.5347 umol/L
[2024-05-30 09:41] LABS: Alanine Aminotransferase 83 U/L (0-40); Albumin Level 4.6 g/dL (3.5-5.0); Alkaline Phosphatase 105 U/L (39-117); Anion Gap 13 (12-20); Aspartate Amino Transferase 61 U/L (5-37); Bilirubin Total 0.5 mg/dL (0.0-1.0); Blood Urea Nitrogen 15 mg/dL (9-16); Calcium 9.8 mg/dL (8.4-10.2); Carbon Dioxide 26 mmol/L (22-29); Chloride 106 mmol/L (96-108); Estimated Glomerular Filt Rate > 60; Glucose Fasting 124 mg/dL (60-99); Potassium 4.6 mmol/L (3.3-5.1); Sodium 140 mmol/L (135-145); Total Protein 7.8 g/dL (6.5-8.0)
== END 2024-05-30 08:16 | disposition home or self-care (01) ==
LOC: HO.LAB 08:15
PROVIDERS: PCP Physician Assistant; Visit Provider Physician Assistant
DX: R73.09 Other abnormal glucose (principal)
CPT/HCPCS: 36415; 80053; 83036; 85027

== ENCOUNTER 2024-06-01 15:03 | Outpatient (AMB) | payer BC, SELFPAY ==
--- NOTE | 2024-06-01 15:06 | A.OFFPC_ITS ---
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: No Accompanied by: Self / Same As Patient Allergies No Known Allergies Allergy (Mild, Verified 06/01/24 15:18) NONE Medication List - Last Reconciled 06/01/24 by Nilya Hammer PA-C lisinopril-hydrochlorothiazide 20-12.5 mg 1 tab PO DAILY 90 days meloxicam 15 mg PO DAILY 30 days Tobacco use date assessed: 06/01/24 Dental Screening Dental Screen Date: 06/01/24 Did you have a dental visit in the last 12 months?: Yes Did you have a dental problem in the last 6 months where you did not have access to dental care?: No Was dental information given to patient?: Patient has dentist HPI f/u IGM/ HTN HPI Details Patient is a 63 year old male here today for follow-up visit Patient has a past medical history significant for hypertension, hypertriglyceridemia, prostate cancer status post total prostatectomy., Concern--> continues to joint pain particularly bilateral shoulders, knees and hips. Was prescribed meloxicam though did not use this medication. He believes most of his joint pains are related to his Lupron injections. 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 Has had multiple cortisone injections in his shoulders. .. Prostate cancer: Patient is status post total prostatectomy though unfortunately was found to have pelvic lymph node involvement and will be starting up with radiation in near future. He has been on Lupron injections which he reports some side effects (arthralgias and sweating). Of note did no weight gain and elevation in his liver enzymes which is likely related. Also his blood sugars has been a bit higher. Patient continues to work full-time. .. Impaired glucose metabolism: Most recent A1c at borderline diabetes. Patient understands this and will work on diabetic diet/low carbohydrate diet. Will hold off on diabetic medication for now. .. Hypertension:? Blood pressure has been well controlled with current dose of lisinopril hydrochlorothiazide. Otherwise denies any headache, chest pain or dizziness. .. Hypertriglyceridemia:? Continues to work extensively on lifestyle to reduce his eye cholesterol foods.? He has unfortunately gained weight since last office v isit.? Will recheck fasting lipid panel for next visit and consider restarting cholesterol medication if needed. .. Class 1 obesity: Has gained significant amount of weight since last office visit. Today's BMI at 33 Laboratory Tests 01/15/23 11/02/23 05/30/24 14:19 08:04 08:39 RBC 4.19 L Hgb 14.1 Fasting Glucose 116 H 124 H Hemoglobin A1c % 5.6 6.5 H AST 32 61 H ALT 28 83 H [facility] Medical History (Updated 06/02/24 @ 07:44 by Nilay Hammer PA-C) Hypertriglyceridemia HTN (hypertension) Hx of renal calculi Surgical History Hx of cystoscopy History of esophagogastroduodenoscopy (EGD) Hx of colonoscopy History of appendectomy History of inguinal hernia repair Family History Father Advanced cardiac disease Mother CAD (coronary artery disease) Diabetes Brother Diabetes Multiple myeloma Prostate cancer Social History Housing: House Alcohol intake: never Patient Tobacco Use Status: Never used Tobacco e-Cigarette/Vaping Use: Never Used Second Hand Smoke Exposure: No service: No Current occupational status: employed 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 1. Little interest or pleasure in doing things: not at all 2. Feeling down, depressed, or hopeless: not at all 3. Trouble falling or staying asleep, or sleeping too much: not at all 4. Feeling tired or having little energy: not at all 5. Poor appetite or overeating: not at all 6. Feeling bad about yourself - or that you are a failure or have let yourself or your family down: not at all 7. Trouble concentrating on things, such as reading the newspaper or watching television: not at all 8. Moving or speaking so slowly that other people could have noticed. Or the opposite - being so fidgety or restless that you have been moving around a lot more than usual: not at all 9. Thoughts that you would be better off or of hurting yourself in some way: not at all Total score: 0 Depression Screening Interpretation: Negative Depression Screening Done: Yes 58354 - PHQ-9 Billing: Yes Source: Developed by Drs. Dennis Mcdowell, Carissa Mcclellan, Kaiden Singh and colleagues, with an educational flaquito from [email or web address]. Thrive Questionnaire Date Thrive assessed: 06/01/24 I am a: Patient What is your living situation today?: I have a steady place to live Within the past 12 months, did the food you bought not last and you didn't have the money to get more?: Never true Within the past 12 months, did you worry whether your food would run out before you got money to buy more?: Never true Do you have trouble paying for medicines?: No Do you have trouble getting transportation to medical appointments?: No Do you have trouble paying your heating and electricity bill?: No Do you have trouble taking care of your child, family member or friend?: No Do you have trouble with day-to-day activities such as bathing, preparing meals, shopping, managing finances, etc.?: No Are you currently unemployed and looking for a job?: No Are you interested in more education?: No Please select the resources that you would like help with: None Currently or been in a relationship where the following occur: No concerns reported THRIVE Score: 0 AUDIT C Alcohol Use Questionnaire (AUDIT-C) 1. How often do you have a drink containing alcohol?: Never 3. How often do you have six or more drinks on one occasion?: Never Total Score: 0 JACQUES-7 AMB Questionnaire JACQUES-7 Date JACQUES - 7 assessed: 06/01/24 Feeling nervous, anxious, or on edge: 0 = Not at all Not being able to stop or control worryin = Not at all Worrying too much about different things: 0 = Not at all Trouble relaxin = Not at all Being so restless that it is hard to sit still: 0 = Not at all Becoming easily annoyed or irritable: 0 = Not at all Feeling afraid as if something awful might happen: 0 = Not at all Total JACQUES-7 score (0-4 normal; 5-9 mild; 10-14 moderate; 15-21 severe): 0 Source: Developed by Drs. Dennis Mcdowell, Carissa Mcclellan, Kaiden Singh and colleagues, with an educational flaquito from [email or web address]. JACQUES-7 Assessment Billing JACQUES-7 Assessment Tool: JACQUES-7 Assessment 33902 Review of Systems Const Denies headache(s) Eyes Denies loss of vision ENT Denies vertigo, Denies dizziness, Denies headache(s) and Denies sore throat Card Denies chest pain, Denies leg edema and Denies lightheadedness Resp Denies cough, Denies hemoptysis and Denies wheezing GI Denies abdominal pain, Denies melena, Denies constipation, Denies diarrhea and Denies vomiting Denies dysuria, Denies urinary frequency and Denies urinary urgency Musc Denies arthralgias, Denies joint swelling, Denies numbness and Denies tingling Neuro Denies Abnormal speech present, Denies behavioral changes, Denies vertigo, Denies dizziness, Denies headache(s), Denies loss of vision, Denies memory loss, Denies numbness and Denies tingling Psych Denies anxiety, Denies behavioral changes, Denies depression, Denies memory loss and Denies panic attacks Michael/Lymph Denies easy bleeding and Denies easy bruising Aller/Immun Denies wheezing Physical exam (Primary Care) Vital Signs: Last Vital Signs Temp 97.3 F 06/01/24 15:10 Pulse 101 H 06/01/24 15:10 BP 128/78 06/01/24 15:10 Pulse Ox 95 06/01/24 15:10 Oxygen Delivery Method Room Air 06/01/24 15:10 BMI result Body Mass Index 33.0 BMI Assessment/Plan discussion: High BMI High, discussed plan: lifestyle, weight reduction, dietary and physical activity Tobacco/Smoking Status: Tobacco use Status Tobacco use date assessed 06/01/24 06/01/24 15:13 Patient Tobacco Use Status Never used Tobacco 06/01/24 15:06 e-Cigarette/Vaping Use Never Used 06/01/24 15:06 PHQ-9: PHQ-9 Score PHQ-9: Total score 0 06/01/24 15:25 Depression Screening Interpretation: Negative Thrive Assessment: Date of Thrive Assessment Date Thrive assessed 06/01/24 06/01/24 15:08 Currently or been in a relationship where the following occur: No concerns reported Const General: healthy appearing, no acute distress, alert and awake Nutritional Appearance: well nourished Orientation/consciousness: oriented to person, oriented to place and oriented to time HENMT Ears: TM's normal bilaterally General nose exam: Normal nasal mucous membranes and turbinates present Eyes Conjunctivae: conjunctivae normal Sclerae: sclerae normal Pupils: Equal, round and reactive pupils present Neck Neck: Yes no lymphadenopathy and Yes no JVD Thyroid: Thyroid normal Carotids: no bruits Resp Effort & Inspection: normal respiratory effort and not tachypneic Auscultation: no crackles, no rales, no rhonchi and no wheezes Cardio Rate: regular rate Rhythm: regular rhythm Heart sounds: no murmurs and normal S1 and S2 GI Palpation (GI): Soft to palpation, nontender, no hepatomegaly and no splenomegaly Auscultation: normal bowel sounds Skin General skin exam: no rashes or lesions noted and dry skin Neuro General: oriented to person, oriented to place and oriented to time Cranial nerves: Yes Equal, round and reactive pupils present Speech: No Abnormal speech present Gait exam (Neuro): Normal gait present Motor exam (neuro): no tremor noted Extrem Right upper extremity: full ROM Left upper extremity: full ROM Right lower extremity: full ROM; no edema Left lower extremity: full ROM; no edema Psych Mental Status: mental status grossly normal Speech and movement: Normal speech and movement present Affect: normal affect Attitude: cooperative Thought process: Normal thought process present Coding Level of Care Code Est Pt Level 4 (93517) Diagnoses Prostate cancer C61 Essential hypertension I10 Hypertension type: essential hypertension Impaired glucose metabolism R73.09 Polyarthralgia M25.50 Keratosis L57.0 Hypertriglyceridemia E78.1 Class 1 obesity E66.811 Additional Codes JACQUES-7 Assessment Billing - JACQUES-7 Assessment Tool: JACQUES-7 Assessment 62061 ([id number]) PHQ-9 - 86349 - PHQ-9 Billing: Yes ([id number]) Assessment & Plan Assessment & Plan (1) Prostate cancer: Code(s): C61 - Malignant neoplasm of prostate Category: Medical Plan: Patient followed by Urology any [place]. Continues on anti hormonal injections for the next year. He does report having side effects from his pelvic radiation treatment such as intermittent bowel pain and bladder pain. He does have side effects of the injections with polyarthralgia to which he uses topical Voltaren. Patient willing to start meloxicam as needed for his joint pains. (2) HTN (hypertension): Code(s): I10 - Essential (primary) hypertension Category: Medical Qualifiers: Hypertension type: essential hypertension Qualified Code(s): I10 - Essential (primary) hypertension Plan: Patient's blood pressure acceptable today in office. Will continue current dose of antihypertensive medication with goal blood pressure to be below 140/90 (3) Impaired glucose metabolism: Code(s): R73.09 - Other abnormal glucose Category: Medical Plan: Most recent A1c is 6.5, patient does understand he has nearly diabetic level. He will work on dietary and lifestyle modifications before starting medication. (4) Polyarthralgia: Code(s): M25.50 - Pain in unspecified joint Category: Medical Plan: As above patient will continue with Voltaren p.r.n. and meloxicam p.r.n. for his joint pains. He is on Lupron injections for the next 11 months. Due to the extent of joints being affected will do preliminary workup for rheumatoid arthritis. (5) Keratosis: Code(s): L57.0 - Actinic keratosis Category: Medical Plan: Has noted keratotic skin lesions over his left lower extremity. Will supply patient with topical steroid ointment to place on skin lesion. (6) Hypertriglyceridemia: Code(s): E78.1 - Pure hyperglyceridemia Category: Medical Plan: Patient has a history of hypertriglyceridemia and was on gemfibrozil previously, had made dietary modifications and was able to get off the medication. Will recheck fasting lipids at next office visit. He will work on dietary modifications over the summer. Goal triglycerides to be below 200 (7) Class 1 obesity: Code(s): E66.811 - Obesity, class 1 Category: Medical Plan: Patient does understand his BMI is over 30 will work on being more physically active and adapting to better eating habits to reduce his weight. Orders: Orders Rheumatoid Factor 06/01/24 M25.50 - Pain in unspecified joint Microalbumin, Random (w Creat) 06/01/24 I10 - Essential (primary) hypertension Comprehensive [place]. Panel Fast 06/01/24 I10 - Essential (primary) hypertension Hemoglobin A1c 06/01/24 R73.09 - Other abnormal glucose WILMER Reflex Titer and Pattern 06/01/24 M25.50 - Pain in unspecified joint Cyclic Citrullinated Peptide 06/01/24 M25.50 - Pain in unspecified joint Complete Blood Count no Diff 06/01/24 R73.09 - Other abnormal glucose Lipid Panel Today E78.1 - Pure hyperglyceridemia Medications: New triamcinolone acetonide 0.1% 1 appl topical DAILY 4 weeks 30 grams 0RF L57.0 - Actinic keratosis Refilled lisinopril-hydrochlorothiazide 20-12.5 mg 1 tab PO DAILY 90 days 90 tabs 2RF I10 - Essential (primary) hypertension meloxicam 15 mg PO DAILY 30 days 30 tabs 0RF M19.90 - Unspecified osteoarthritis, unspecified site Patient Instructions: Goal: Blood pressure to remain below 140/90 Barriers: Adherence to physical activity and healthy eating habits
[2024-06-01 15:10] VITALS: BP 128/78; PULSE 101; TEMP 36.3; O2SAT 95; BMI 33.0
--- OUTSIDE RECORDS SUMMARY | 2024-06-01 17:38 | XMS_ITS | Clinical Summary ---
Author Organization [address] Address [address] [place] [address] Phone Care Team Providers Care Sizer Hand Name Role Phone Nilay Hammer Primary Care Provider Surgical History Surgery Date Site/Laterality Comments KIDNEY STONE SURGERY PROCEDURE:KIDNEY STONE SURGERY HERNIA REPAIR PROCEDURE:HERNIA REPAIR Medical History Medical History Date Comments Kidney stone DX:Kidney stone Weak urine stream DX:Weak urine stream Family History Medical History Relation Name Comments Prostate cancer Brother Relation Name Status Comments Brother Alive Social History Tobacco Use Types Packs/Day Years Used Date Smoking Tobacco: Never Smokeless Tobacco: Never Alcohol Use Standard Drinks/Week Comments Never 0 (1 standard drink = 0.6 oz pur e alcohol) Sex and Gender Information Value Date Recorded Sex Assigned at Not on file Legal Sex Male 9:03 PM EST Gender Identity Not on file Sexual Orientation Not on file Obstetrics History Last Filed Vital Signs Vital Sign Reading Time Taken Comments Blood Pressure 118/74 10/24/2023 9:17 AM EDT Pulse 92 10/24/2023 9:17 AM EDT Temperature - - Respiratory Rate - - Oxygen Saturation - - Inhaled Oxygen Concentration - - Weight 99.8 kg (220 lb) 10/24/2023 9:17 AM EDT Height 177.8 cm (5' 10 ) 10/24/2023 9:17 AM EDT Body Mass Index 31.57 10/24/2023 9:17 AM EDT Plan of Treatment Health Maintenance Due Date Last Done Comments COVID-19 Vaccine (#1) 1965 DTaP,Tdap,and Td Vaccines (1 - Tdap) 09/06/1979 Pneumococcal Vaccine: 50+ Ye ars (1 of 2 - PCV) 09/06/1979 Pneumococcal Vaccine: Pediat rics (0 to 5 Years) and At-Risk Patients (6 to 64 Years) (1 of 2 - PCV) 09/06/1979 Zoster Vaccines (1 of 2) 09/06/1979 Cholesterol Screening (Lipid Panel) 03/15/2023 Colorectal Cancer Screening: Colonoscopy 03/15/2023 Depression Screening 03/15/2023 HIV Screening 03/15/2023 Hepatitis C Screening 03/15/2023 Social Influencers of Health Screening 03/15/2023 Influenza Vaccine (Season Ended) 2024 RSV Immunization Adult Patie nts (1 - 1-dose 75+ series) 09/06/2035 HIB Vaccines Aged Out No longer eligi ble based on patient's age to complete this topic HPV Vaccines Aged Out No longer eligi ble based on patient's age to complete this topic Hepatitis A Vaccines Aged Out No long er eligible based on patient's age to complete this topic Hepatitis B Vaccines Aged Out No long er eligible based on patient's age to complete this topic IPV Vaccines Aged Out No longer eligi ble based on patient's age to complete this topic MMR Vaccines Aged Out No longer eligi ble based on patient's age to complete this topic Meningococcal ACWY Vaccine Aged Out N o longer eligible based on patient's age to complete this topic Meningococcal B Vaccine Aged Out No l onger eligible based on patient's age to complete this topic RSV Immunization Patients Un nevin 20 months Aged Out No longer eligible b ased on patient's age to complete this topic Varicella Vaccines Aged Out No longer eligible based on patient's age to complete this topic Care Teams Sizer Hand Relationship Specialty Start Date End Date Nilay Hammer PA PCP - General 11/08/22
--- OUTSIDE RECORDS SUMMARY | 2024-06-01 17:38 | XMS_ITS ---
Author Name [facility] Organization Unknown Results Test Name/Text Value Interpretation Date Range Source PROSTATE SPECIFIC AG 0.1ng/mL Normal [id number] 0 - 4 [facility] PROSTATE SPECIFIC AG 0.1ng/mL Normal [id number] 0 - 4 [facility] PROSTATE SPECIFIC AG 0.6ng/mL Normal [id number] 0 - 4 [facility] ABO GROUP (TYPE) IN BLOOD O Normal [facility] RH TYPE IN BLOOD POS Normal [facility] RBC DISTRIBUTION WIDTH 12.3% Normal 11.6 - 14.8 [facility] AUTO NRBC % 0% Normal 0 - [address] [facility] [address] 4.610*3/uL Normal 1.4 - 6.[address] [facility] [address] 0.710*3/uL Normal 0.2 - 0.8 [facility] MCHC 34.3g/dL Normal 32 - 36 [facility] MCH 33pg Normal 26 - 34 [facility] IMMATURE GRANULOCYTE % 0.2% Normal 0 - 0.6 [facility] EOSINOPHIL % 2.9% Normal 0 - [address] [facility] [address] 0.110*3/uL Normal 0 - 0 .2 [facility] MCV 96.4fL Normal 80 - 100 [facility] PLATELET COUNT 18663*3/uL Normal 150 - 440 [facility] BASOPHILS % 0.6% Normal 0 - [address] [facility] [address] 2.410*3/uL Normal 0.7 - 4.[address] [facility] [address] 0.210*3/uL Normal 0 - 0.3 [facility] HEMATOCRIT 42.6% Normal 40 - 52 [facility] WHITE CELL COUNT 8.110*3/uL Normal 3.8 - 10. 6 [facility] RED CELL COUNT 4.4210*6/???L Normal 4.4 - 5. 9 [facility] MONOCYTE % 8.6% Normal 4 - 12 [facility] NEUTROPHIL % 57.4% Normal 40 - 70 [facility] HEMOGLOBIN 14.6g/dL Normal 13 - 18 [facility] LYMPHOCYTE % 30.3% Normal 20 - 50 [facility] PROSTATE SPECIFIC AG 7.8ng/mL Above high normal 0 - 4 [facility] CREATININE 0.9mg/dL Normal 0.6 - 1.2 [facility] POTASSIUM 4.4mmol/L Normal 3.6 - 5.1 [facility] BICARBONATE 26mmol/L Normal 23 - 32 [facility] GLOMERULAR FILTRATION RATE ML/MIN/1.73 SQ M.PREDICTED 97mL/min/1.73m* 2 Normal 60 - [facility] SODIUM 139mmol/L Normal 137 - 144 [facility] CHLORIDE 104mmol/L Normal 100 - 111 [facility] CALCIUM, TOTAL 9.3mg/dL Normal 8.4 - 10.2 [facility] UREA NITROGEN 23mg/dL Normal 8 - 24 [facility] ANION GAP 9mmol/L Normal 3 - 11 [facility] GLUCOSE 81mg/dL Normal 70 - 200 [facility] ABO GROUP (TYPE) IN BLOOD O Normal [facility] RH TYPE IN BLOOD POS Normal [facility] ANTIBODY SCREEN NEG Normal C [facility] ISTAT SAMPLE TYPE unknown Normal [facility] POCT CREATININE 0.8mg/dL Normal 0.6 - 1.2 C [facility] History of Medication Use Medication Directions Dispensed Refills Start Date End Date Stat Dana-3 1000 MG CAPS Take by mouth. active sulfamethoxazole- trimethoprim (BACTRIM DS) 800-160 mg per tablet Take 1 tablet by mouth in the morning and 1 tablet before bedtime. Do all this for 3 days. Start 3 day prescription on the day prior to shannon catheter removal. Continue on the day of appointment for catheter removal. Complete antibiotic on the day following catheter removal.. 01/28/2023 02/01/2023 completed sildenafil (Viagra) 100 MG tablet Take 1 tablet (100 mg total) by mouth as needed for erectile dysfunction. 12/28/2022 12/29/2023 active tadalafiL (CIALIS) 20 mg tablet Take 1 tablet (20 mg total) by mouth 3 (three) times a week. 02/27/2023 06/20/2023 active Problems Problem Status Onset Date Problem Type Date of Resoluti on Source Prostate cancer active 2023-01-[address] [facility] Prostate cancer active 2023-10-[address] [facility] Encounters Encounter Type Encounter Reason Primary Diagnosis Location Date Ambulatory Malignant neoplasm of prostate Malignant neoplasm of prostate [facility] 04/16/2024 Ambulatory Malignant neoplasm of prostate Malignant neoplasm of prostate [facility] 01/15/2024 Ambulatory [facility] 12/09/2023 Ambulatory [facility] 12/09/2023 Ambulatory Malignant neoplasm of prostate Malignant neoplasm of prostate [facility] 11/28/2023 Ambulatory Malignant neoplasm of prostate Malignant neoplasm of prostate [facility] 11/28/2023 Ambulatory Malignant neoplasm of prostate Malignant neoplasm of prostate [facility] 10/24/2023 Ambulatory Malignant neoplasm of prostate Malignant neoplasm of prostate [facility] 10/16/2023 Ambulatory Malignant neoplasm of prostate Malignant neoplasm of prostate [facility] 10/16/2023 Ambulatory Malignant neoplasm of prostate Malignant neoplasm of prostate [facility] 10/01/2023 Ambulatory Malignant neoplasm of prostate Malignant neoplasm of prostate [facility] 10/01/2023 Ambulatory Malignant neoplasm of prostate Malignant neoplasm of prostate [facility] 07/16/2023 Ambulatory Malignant neoplasm of prostate Malignant neoplasm of prostate [facility] 05/28/2023 Ambulatory Malignant neoplasm of prostate Malignant neoplasm of prostate [facility] 05/28/2023 Ambulatory Malignant neoplasm of prostate Malignant neoplasm of prostate [facility] 04/17/2023 Ambulatory Malignant neoplasm of prostate Malignant neoplasm of prostate [facility] 04/05/2023 Ambulatory Malignant neoplasm of prostate Malignant neoplasm of prostate [facility] 03/29/2023 Ambulatory Malignant neoplasm of prostate Malignant neoplasm of prostate [facility] 02/26/2023 Ambulatory Malignant neoplasm of prostate Malignant neoplasm of prostate [facility] 02/26/2023 Ambulatory [facility] 02/04/2023 Ambulatory Malignant neoplasm of prostate Malignant neoplasm of prostate [facility] 01/28/2023 Ambulatory Malignant neoplasm of prostate Malignant neoplasm of prostate [facility] 01/16/2023 Ambulatory Malignant neoplasm of prostate Malignant neoplasm of prostate [facility] 01/16/2023 Ambulatory [facility] 01/08/2023 Ambulatory Malignant neoplasm of prostate Malignant neoplasm of prostate [facility] 01/08/2023 Ambulatory Malignant neoplasm of prostate Malignant neoplasm of prostate [facility] 12/28/2022 Ambulatory Malignant neoplasm of prostate Malignant neoplasm of prostate [facility] 12/26/2022 Ambulatory Elevated prostate specific antigen (PSA) Elevated prostate specific antigen (PSA) [facility] 12/05/2022 Care Team Organization Name Specialty Phone Email Start Date End Da te [facility] JULIO ARGUETA Primary Care 12/30/2023 [facility] JULIO ADA Primary Care 12/28/2023 [facility] Wlil MD Primary Care 06/12/2023 [facility] Will MD Primary Care 06/12/2023 [facility] JULIO ARGUETA Primary Care 2023 [facility] NO PCP Primary Care 12/26/202209/2022 [facility] 12/07/2022 [facility] JULIO ARGUETA Primary Care 12/05/2022 023
--- OUTSIDE RECORDS SUMMARY | 2024-06-01 17:38 | XMS_ITS ---
Author Organization Formerly [facility] Address [address] [place] [address] Care Team Providers Care Route Contractor Name Role Phone Nilay Hammer Primary Care Provider [phone]- [phone] Active Problems Problem Noted Date Diagnosed Date Prostate cancer 01/02/2023 Current Treatment and Therapy Plans No current plan information found. Past Treatment and Therapy Plans No past plan information found. Lifetime Dose Tracking * Chemical Lifetime Dose Automatic Entry Manual Entr y Radiation (DLP) 980 mGy-cm 980 mGy-cm 0 mGy-cm CTDIvol min 9 mGy 9 mGy 0 mGy CTDIvol max 9 mGy 9 mGy 0 mGy [id number] 10.4 mSv 10.4 mSv 0 mSv
--- OUTSIDE RECORDS SUMMARY | 2024-06-01 17:38 | XMS_ITS | Clinical Summary ---
Author Organization [facility] Address [address] [place] [address] Care Team Providers Care Electric Motor Repairer Name Role Phone Nilay Hammer Primary Care Provider +1- [phone] Allergies No known active allergies Medications lisinopriL-hydroch lorothiazide (PRINZIDE) 20-12.5 mg per tablet 12/02/2022 Activ e Hospital, Clinic, or Other Facility Administered Medication Ordered Dose Route Frequency Start Date End Date Status leuprolide (3 month) (LUPRON) injection 22.5 mgIndications:Prostate cancer (HCC) 22.5 mg IM Every 3 months 04/15/2023 04/03/2025 Active Active Problems Problem Noted Date Diagnosed Date Prostate cancer 01/02/2023 Encounters Date Type Department Care Team Description 04/16/2024 3:30 PM EST Procedure visit [facility] Department of Urology [address] [place] [address] Idris Moreno MD Leavitt, Karen, ELMER Prostate cancer (HCC) 04/15/2024 Orders Only [facility] [address] [place] [address] Melvin Dawkins, ELMER Prostate cancer (HCC) (Primary Dx) from Last 3 Months Social History Tobacco Use Types Packs/Day Years Used Date Smoking Tobacco: Never Smokeless Tobacco: Never Tobacco Cessation:Counseling Given: Not Answered Alcohol Use Standard Drinks/Week Comments Not Currently 0 (1 standard drink = 0.6 oz pur e alcohol) Hunger Vital Sign Answer Date Recorded Within the past 12 months, y ou worried that your food would run out before you got the money to buy more. Never true 12/11/20 23 Within the past 12 months, t he food you bought just didn't last and you didn't have money to get more. Never true 01/28/2023 Sex and Gender Information Value Date Recorded Sex Assigned at Not on file Legal Sex Male 1:20 PM EDT Gender Identity Not on file Sexual Orientation Not on file Last Filed Vital Signs Vital Sign Reading Time Taken Comments Blood Pressure 138/83 10/16/2023 2:17 PM EDT Pulse 86 10/16/2023 2:17 PM EDT Temperature 36.7 ??C (98.1 ??F) 10/16/2023 2:17 PM ED T Respiratory Rate 18 01/29/2023 7:00 AM EST Oxygen Saturation 95% 10/16/2023 2:17 PM EDT Inhaled Oxygen Concentration - - Weight 98.8 kg (217 lb 14.4 oz) 10/16/2023 2:17 PM EDT Height 177.8 cm (5' 10 ) 10/01/2023 3:41 PM EDT Body Mass Index 31.27 10/01/2023 3:41 PM EDT Plan of Treatment Upcoming Encounters Date Type Department Care Team (Late st Contact Info) Description 07/17/2024 3:30 PM EDT Procedure visit [facility] Department of Urology [address] [place] [address] Idris Moreno MD [address] [facility] [place] [address] Health Maintenance Due Date Last Done Comments CT Colonography 1960 Colonoscopy 1960 Colorectal Cancer Screening 1960 FIT-DNA (Cologuard) 1960 FIT 1960 FOBT 1960 Flex Sigmoidoscopy - 5y 1960 HIV Screening 1960 DTaP,Tdap,and Td Vaccines (1 - Tdap) 1978 Hepatitis C Screening 1978 Pneumococcal Vaccine, 50+ Years (1 of 2 - PCV) 09/06/1979 Zoster Vaccines (1 of 2) 09/06/1979 COVID-19 Vaccine (2023-2 5 season) 2023 01/10/2021, 05/26/2020, 04/22/2020 Influenza Vaccine (Season Ended) 2024 HPV Vaccines Aged Out No longer eligi ble based on patient's age to complete this topic Hepatitis A Vaccines Aged Out No long er eligible based on patient's age to complete this topic MMR Vaccines Aged Out No longer eligi ble based on patient's age to complete this topic Meningococcal Vaccine Aged Out No kenneth tanesha eligible based on patient's age to complete this topic Insurance ANTHEM - OUT OF STATE Advance Directives For more information, please contact: [phone] * Full Code (Latest Code Status on File) Date Activated Date Inactivated Comments 01/28/2023 11:06 AM 01/29/2023 1:02 PM Care Teams Electric Motor Repairer Relationship Specialty Start Date End Date Nilay Hammer PA [address] [place] [address] PCP - General Primary Care 05/28/23
--- OUTSIDE RECORDS SUMMARY | 2024-06-01 17:38 | XMS_ITS | Clinical Summary ---
Author Organization [facility] Address [address] [place] [address] Care Team Providers Care Support Dba Name Role Phone Nilay Hammer Primary Care Provider +1- [phone] Allergies No known active allergies Medications Medication Sig Dispensed Refills Start Date End Date Status lisinopril-hydroCHL OROthiazide (PRINZIDE,ZESTORETI C) tablet 20-12.5 mg 0 12/02/2022 Active tadalafil (CIALIS) 5 MG tablet Take 1 tablet (5 mg total) by mouth daily. 90 tablet 3 12/18/2022 Active Additional Information Patient not taking.Reason: Other, Reported on 10/24/2023 [place]-3 1000 MG CAPS Take by mouth. 0 Active Active Problems Problem Noted Date Diagnosed Date Prostate cancer 10/24/2023 Cancer Staging:Pathologic stage from 10/24/2023:Stage IIIC(pT3a, pN0, cM0, PSA: 6.8, Grade Group: 5) - Signed by Oliver Schrader MD on 10/24/2023 Family History Medical History Relation Name Comments Prostate cancer Brother Relation Name Status Comments Brother Alive Social History Tobacco Use Types Packs/Day Years Used Date Smoking Tobacco: Never Smokeless Tobacco: Never Tobacco Cessation:Counseling Given: Not Answered Alcohol Use Standard Drinks/Week Comments Never 0 (1 standard drink = 0.6 oz pur e alcohol) Sex and Gender Information Value Date Recorded Sex Assigned at Not on file Gender Identity Not on file Sexual Orientation Not on file Job Start Date Occupation Industry Not on file Not on file Not on file Last Filed Vital Signs Vital Sign Reading Time Taken Comments Blood Pressure 118/74 10/24/2023 9:17 AM EDT Pulse 92 10/24/2023 9:17 AM EDT Temperature - - Respiratory Rate 12 10/24/2023 9:17 AM EDT Oxygen Saturation 99% 10/24/2023 9:17 AM EDT Inhaled Oxygen Concentration - - Weight 99.8 kg (220 lb) 10/24/2023 9:17 AM EDT Height 177.8 cm (5' 10 ) 10/24/2023 9:17 AM EDT Body Mass Index 31.57 10/24/2023 9:17 AM EDT Plan of Treatment Health Maintenance Due Date Last Done Comments Hepatitis C Screening 1960 COVID-19 Vaccine (#1) 1965 Pneumococcal Vaccine (1 of 2 - PCV) 1966 Depression Screening 1972 BMI Counseling 1978 Preventative Health Evaluation 1978 DTap / Tdap / Td (1 - Tdap) 09/06/1979 Shingrix-Zoster Vaccine (1 of 2) 09/06/1979 Colon Cancer Screening (Colonoscopy) 2005 Influenza Vaccine (#1) 2023 RSV Adult > 60+ Yrs or Pregn ant (1 - 1-dose 75+ series) 09/06/2035 Hepatitis B Vaccines Aged Out No long er eligible based on patient's age to complete this topic RSV Ped < 20 months Aged Out No longe r eligible based on patient's age to complete this topic Care Teams Support Dba Relationship Specialty Start Date End Date Nilay Hammer PA [address] [place] [id number] PCP - General Physician Display Card Writer 11/08/22
--- OUTSIDE RECORDS SUMMARY | 2024-06-01 17:38 | XMS_ITS | Patient Health Record ---
Author Organization Dennis Rascon III, MD Address [address] [place] [address] Care Team Providers Care Gumming Machine Operator Name Role Phone JULIO ARGUETA Primary Care Provider Unavailab Dennis Betancourt Unavailable [phone] Allergies No Known Allergies Reason For Referral No Information Medications Medication SIG (Take, Route, Fr equency, Duration) Notes Start Date End Date Status Fish Oil 1000 MG 1 capsule Orally Once a day Active [facility] D3 1000 UNIT 1 CAPSULE ONCE A DAY ORALLY 90 DAYS Oral Active Social History Tobacco Use: Social History Observation Description Date Details (start date - stop date) Never Smoker NA - NA Tobacco Use/Smoking Question Answer Notes Patient is a nonsmoker Additional Findings: Tobacco Non-User Aggressive non-smoker Alcohol Screen Question Answer Notes Did you have a drink containing alcohol in the p ast year? No Points 0 Interpretation Negative Problems Problem Type SNOMED Code ICD Code Onset Dates Problem Status W/U Status Risk Notes Problem 104365368311261 Obesity (BMI 30.0-34.9) (E66.9) Active confirmed He has lo st 7 pounds since his last visit. I encouraged him to continue losing weight in kilos body mass index is normal. Problem 796809550 Monoclonal gammopathy (D47.2) Active confirmed The monoc lonal protein is not rising. The other antibody levels are in the normal range. His CBC is unremarkable. His kappa lambda ratio is rising, as is the 3I chain value. Observation will continue. Problem 524876648 Pure hypertriglyceridem ia (E78.1) Active confirmed His fasting lipid profile should be checked several times a year. We discussed weight reduction and a healthy Mediterranean diet. Problem 83660553 Vitamin D deficiency (E55.9) Active confirmed He was continued on all current therapies ordered by primary care. Problem 7530441 Impaired glucose metabolism (R73.02) Active confirmed His blood sugars will be followed here as well as with primary care. Problem 984729156 ZAVALA (nonalcohol ic steatohepatitis) (K75.81) Active confirmed His liver function tests are stable and slightly elevated. [facility]. Problem 049570151 High serum ferritin (R79.89) Active confirmed His ferrit in is stable but elevated. There was no sign of developing cirrhosis. Observation will continue. Problem 14617900 Sessile colonic polyp (K63.5) Active confirmed I will [facility] the [facility]. Plan Of Treatment Pending Test Test Name Order Date PROFILE, RANDOM (COMPREHENSIVE METABOLIC ) 06/24/2018 PROFILE, RANDOM (COMPREHENSIVE METABOLIC ) 08/14/2021 PROFILE, RANDOM (COMPREHENSIVE METABOLIC ) 03/12/2018 PROFILE, RANDOM (COMPREHENSIVE METABOLIC ) 05/06/2019 PROFILE, RANDOM (COMPREHENSIVE METABOLIC ) 12/30/2019 PROFILE, RANDOM (COMPREHENSIVE METABOLIC ) 10/31/2018 PROFILE, RANDOM (COMPREHENSIVE METABOLIC ) 08/05/2019 FERRITIN 06/24/2018 FERRITIN 08/14/2021 FERRITIN 03/12/2018 FERRITIN 05/06/2019 FERRITIN 12/30/2019 FERRITIN 10/31/2018 FERRITIN 08/05/2019 CBC w DIFF 08/05/2019 CBC w DIFF 06/24/2018 CBC w DIFF 08/14/2021 CBC w DIFF 03/12/2018 CBC w DIFF 05/06/2019 CBC w DIFF 12/30/2019 CBC w DIFF 10/31/2018 ALPHA-FETOPROTEIN,TUMOR MARKER 0 ALPHA-FETOPROTEIN,TUMOR MARKER 0 ALPHA-FETOPROTEIN,TUMOR MARKER 0 IMMUNOFIXATION PANEL, SERUM (IEP) 2018 IMMUNOFIXATION PANEL, SERUM (IEP) 2019 IMMUNOFIXATION PANEL, SERUM (IEP) 2018 IMMUNOFIXATION PANEL, SERUM (IEP) 2021 IMMUNOFIXATION PANEL, SERUM (IEP) 2018 IMMUNOFIXATION PANEL, SERUM (IEP) 2019 IMMUNOFIXATION PANEL, SERUM (IEP) 2019 PROTEIN ELECTROPHORESIS, SERUM 0 PROTEIN ELECTROPHORESIS, SERUM 0 PROTEIN ELECTROPHORESIS, SERUM 9 PROTEIN ELECTROPHORESIS, SERUM 2 PROTEIN ELECTROPHORESIS, SERUM 9 FREE KAPPA LAMBDA, SERUM K/L RATIO 06/24 FREE KAPPA LAMBDA, SERUM K/L RATIO 05/05 FREE KAPPA LAMBDA, SERUM K/L RATIO 08/04 KAPPA LAMBDA SER 08/05/2019 KAPPA LAMBDA SER 06/24/2018 KAPPA LAMBDA SER 05/06/2019 Insurance Providers Payer Name Payer Address Payer Phone Subscriber Number Group Number Insured Name Patient Relationship to Insured Coverage Start Date Coverage End Date [employer] [address] [place] [id number] [phone] [id number] Julian Montanez Self - patient is the insured Medical (General) History Medical History History ICD Code Pure hypertriglyceridemia E78.1 Vitamin D deficiency E55.9 Sessile colonic polyp K63.5 Vitreous floaters of left eye H43.392 ZAVALA (nonalcoholic steatohepatitis) K75. 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 2017 monoclonal IgG kappa Surgical History Surgery Date(Month/Year) ()inguinal hernia repair, Left- B Gla kin 2008 ()Apendectomy 2008 ureteral stent 1995 resection branchial cyst right neck 1991 colonoscopy 10/2016
== END 2024-06-01 15:50 | disposition home or self-care (01) ==
LOC: HO.HMCH 15:03
PROVIDERS: PCP Physician Assistant; Visit Provider Physician Assistant
DX: I10 Essential (primary) hypertension (principal); C61 Malignant neoplasm of prostate; E66.811 Obesity, class 1; Z68.33 Body mass index [BMI] 33.0-33.9, adult; R73.09 Other abnormal glucose; M25.50 Pain in unspecified joint; L57.0 Actinic keratosis; E78.1 Pure hyperglyceridemia

== ENCOUNTER → 2024-06-01 15:03 | Outpatient (BNVA) | payer BC, SELFPAY | PROVIDERS: PCP Physician Assistant; Visit Provider Physician Assistant | DX: C61 Malignant neoplasm of prostate (principal); I10 Essential (primary) hypertension; R73.09 Other abnormal glucose; M25.50 Pain in unspecified joint; L57.0 Actinic keratosis; E78.1 Pure hyperglyceridemia; E66.811 Obesity, class 1; Z68.33 Body mass index [BMI] 33.0-33.9, adult | CPT/HCPCS: 96127 ==

== ENCOUNTER 2024-12-05 07:17 | Outpatient (REF) | payer BC, SELFPAY ==
--- OUTSIDE RECORDS SUMMARY | 2024-12-05 07:20 | XMS_ITS | Clinical Summary ---
Author Organization [address] Address [address] [place] [address] Phone Care Team Providers Care Diver Tender Name Role Phone Nilay Hammer Primary Care [...] Health Maintenance Due Date Last Done Comments Colorectal Cancer Screening: Colonoscopy 1960 DTaP,Tdap,and Td Vaccines (1 - Tdap) 09/06/1979 Pneumococcal Vaccine: 50+ Ye ars (1 of 1 - PCV) 2010 Zoster Vaccines (1 of 2) 2010 Cholesterol Screening (Lipid Panel) 03/15/2023 HIV Screening 03/15/2023 Hepatitis C Screening 03/15/2023 Social Influencers of Health Screening 03/15/2023 Depression Screening 02/19/2024 COVID-19 Vaccine (1 - 2023-2 5 season) 2024 Influenza Vaccine (#1) 2024 RSV Immunization Adult Patie nts (1 [...] age to complete this topic Care Teams Diver Tender Relationship Specialty Start Date End Date Nilay Hammer PA PCP - General 11/08/22
--- OUTSIDE RECORDS SUMMARY | 2024-12-05 07:20 | XMS_ITS | Patient Health Record ---
Author Organization Dennis Rascon III, MD Address [address] [place] [address] [place] [address] Care Team Providers Care Phy Therapist Name Role Phone JULIO ARGUETA Primary Care Provider Dr. Dennis Reardon III Unavailable [phone] Allergies No Known Allergies Reason For Referral [...] Problem Status W/U Status Risk Notes Problem [id number] Obesity (BMI 30.0-34.9) (E66.9) Active confirmed He has lo st 7 pounds since his last visit. I encouraged him to continue losing weight in kilos body mass index is normal. Problem 381605001 Monoclonal gammopathy (D47.2) Active confirmed The monoc lonal protein is not rising. The other antibody levels are in the normal range. His CBC is unremarkable. His kappa lambda ratio is rising, as is the 3I chain value. Observation will continue. Problem 467863276 Pure hypertriglyceridem ia (E78.1) Active confirmed His fasting lipid profile should be checked several times a year. We discussed weight reduction and a healthy Mediterranean diet. Problem 20489527 Vitamin D deficiency (E55.9) Active confirmed He was continued on all current therapies ordered by primary care. Problem 7049640 Impaired glucose metabolism (R73.02) Active confirmed His blood sugars will be followed here as well as with primary care. Problem 844083224 ZAVALA (nonalcohol ic steatohepatitis) (K75.81) Active confirmed His liver function tests are stable and slightly elevated. [facility]. Problem 573035856 High serum ferritin (R79.89) Active confirmed His ferrit in is stable but elevated. There was no sign of developing cirrhosis. Observation will continue. Problem 53327344 Sessile colonic polyp (K63.5) Active confirmed [facility] Plan Of Treatment Pending Test Test Name Order Date PROFILE, RANDOM (COMPREHENSIVE METABOLIC ) 08/14/2021 PROFILE, RANDOM (COMPREHENSIVE METABOLIC ) 06/24/2018 PROFILE, RANDOM (COMPREHENSIVE METABOLIC ) 12/30/2019 PROFILE, RANDOM (COMPREHENSIVE METABOLIC ) 03/12/2018 PROFILE, RANDOM (COMPREHENSIVE METABOLIC ) 05/06/2019 PROFILE, RANDOM (COMPREHENSIVE METABOLIC ) 10/31/2018 PROFILE, RANDOM (COMPREHENSIVE METABOLIC ) 08/05/2019 FERRITIN 08/14/2021 FERRITIN 06/24/2018 FERRITIN 12/30/2019 FERRITIN 03/12/2018 FERRITIN 05/06/2019 FERRITIN 10/31/2018 FERRITIN 08/05/2019 CBC w DIFF 08/05/2019 CBC w DIFF 08/14/2021 CBC w DIFF 06/24/2018 CBC w DIFF 12/30/2019 CBC w DIFF 03/12/2018 CBC w DIFF 05/06/2019 CBC w DIFF 10/31/2018 ALPHA-FETOPROTEIN,TUMOR MARKER 0 ALPHA-FETOPROTEIN,TUMOR MARKER 0 ALPHA-FETOPROTEIN,TUMOR MARKER 0 IMMUNOFIXATION PANEL, SERUM (IEP) 2019 IMMUNOFIXATION PANEL, SERUM (IEP) 2019 IMMUNOFIXATION PANEL, SERUM (IEP) 2018 IMMUNOFIXATION PANEL, SERUM (IEP) 2019 IMMUNOFIXATION PANEL, SERUM (IEP) 2021 IMMUNOFIXATION PANEL, SERUM (IEP) 2018 IMMUNOFIXATION PANEL, SERUM (IEP) 2018 PROTEIN ELECTROPHORESIS, SERUM 01/23/201 9 PROTEIN ELECTROPHORESIS, SERUM 0 PROTEIN ELECTROPHORESIS, SERUM 0 PROTEIN ELECTROPHORESIS, SERUM 2 PROTEIN ELECTROPHORESIS, SERUM [...] Date Coverage End Date [employer] [address] [place], [place] [phone] [id number] Julian Montanez Self - patient is the [...]
--- OUTSIDE RECORDS SUMMARY | 2024-12-05 07:20 | XMS_ITS ---
Author Organization [facility] Address [address] [place] [address] Care Team Providers Care Ethologist Name Role Phone Nilay Hammer Primary Care Provider +1- [phone] Active Problems Problem Noted Date Diagnosed Date [...] max 9 mGy 9 mGy 0 mGy [id number] 10.4 mSv 10.4 mSv 0 mSv
--- OUTSIDE RECORDS SUMMARY | 2024-12-05 07:20 | XMS_ITS | Clinical Summary ---
Author Organization [facility] Address [address] [place] [address] Care Team Providers Care Content Architect Name Role Phone Nilay Hammer Primary Care Provider +1- [phone] Allergies No known active allergies Medications Medication Sig Dispensed Refills Start Date End Date Status lisinopril-hydroCHL OROthiazide (PRINZIDE,ZESTORETI C) tablet 20-12.5 mg 0 12/02/2022 Active tadalafil (CIALIS) 5 MG tablet Take 1 tablet (5 mg total) by mouth daily. 90 tablet 3 12/18/2022 Active Additional Information Patient not taking.Reason: Other, Reported on 10/24/2023 [place]-3 1000 MG CAPS Take by mouth. 0 [...] Vaccine (1 of 2 - PCV) 1966 Pneumococcal Vaccine (1 of 2 - PCV) 1966 Depression Screening 1972 BMI Counseling 1978 Preventative Health Evaluation 1978 DTap / Tdap / Td (1 - Tdap) 09/06/1979 Shingrix-Zoster Vaccine (1 of 2) 09/06/1979 Colon Cancer Screening (Colonoscopy) 2005 Influenza Vaccine (#1) 2024 RSV Adult > 60+ Yrs or Pregn ant (1 - 1-dose 75+ series) 09/06/2035 Hepatitis B Vaccines Aged Out No long er eligible based on patient's age to complete this topic RSV Ped < 20 months Aged Out No longe r eligible based on patient's age to complete this topic Care Teams Content Architect Relationship Specialty Start Date End Date Nilay Hammer PA [address] [place] [id number] PCP - General Physician Supervisor Heading 11/08/22
--- OUTSIDE RECORDS SUMMARY | 2024-12-05 07:20 | XMS_ITS ---
Author Name [facility] Organization Unknown Results Test Name/Text Value Interpretation Date Range Source GFRE 94.0 Normal 11/18/2024 60 - [facility] ALKALINE PHOSPHATASE 136.0 U/L Above high normal 11/18/2024 45 - 129 [facility] BUN 18.0 mg/dL Normal 11/18/2024 9 - 23 [facility] GLUCOSE 148.0 mg/dL Above high normal 11/18/2024 74 - 106 [facility] CO2 25.0 mmol/L Normal 11/18/2024 20 - 31 [facility] ALT (SGPT) 129.0 U/L Above high normal 11/18/2024 10 - 49 [facility] GLOBULIN 2.9 g/dL Normal 11/18/2024 2.2 - 3.5 [facility] BUN/CREAT.RATIO 20.7 Normal 11/18/2024 [facility] POTASSIUM SERUM 3.7 mmol/L Normal 11/18/2024 3.5 - 5.1 [facility] ALBUMIN 5.3 g/dL Above high normal 11/18/2024 3.2 - 4.8 C [facility] BILIRUBIN,TOTAL 0.7 mg/dL Normal 11/18/2024 0.3 - 1.2 [facility] CREATININE 0.87 mg/dL Normal 11/18/2024 0.7 - 1.3 [facility] AST (SGOT) 94.0 U/L Above high normal 11/18/2024 0 - 34 [facility] CHLORIDE 100.0 mmol/L Normal 11/18/2024 98 - 107 [facility] PROTEIN, TOTAL 8.2 g/dL Normal 11/18/2024 5.7 - 8.2 [facility] SODIUM 139.0 mmol/L Normal 11/18/2024 136 - 145 [facility] A/G RATIO 1.8 g/dL Normal 11/18/2024 [facility] PATIENT FASTING? UNKNOWN Normal 11/18/2024 [facility] LIPASE 55.0 U/L Above high normal 11/18/2024 12 - 53 C [facility] ABSOLUTE EOS 0.0 K/uL Normal 11/18/2024 0 - 0.7 [facility] WBC 7.5 K/uL Normal 11/18/2024 3.7 - 10.3 [facility] ABSOLUTE IMMATURE GRANULOCYTES 0.0 K/uL Normal 11/18/2024 0 - 0.3 [facility] BASOPHILS 0.0 % Normal 11/18/2024 0 - 2 [facility] ABSOLUTE GRANULOCYTES 6.3 K/uL Normal 11/18/2024 2.2 - 7.3 [facility] LYMPHS 13.0 % Below low normal 11/18/2024 16 - 50 [facility] RBC 4.43 M/uL Normal 11/18/2024 4.3 - 6 [facility] PLATELET COUNT 272.0 K/uL Normal 11/18/2024 150 - 480 [facility] ABSOLUTE NUCLEATED RBC 0.0 K/uL Normal 11/18/2024 0 - 0.012 [facility] RDW 12.5 % Normal 11/18/2024 11.1 - 13.3 [facility] MCH 34.0 PG Normal 11/18/2024 27 - 34 [facility] HGB 15.1 g/dL Normal 11/18/2024 13.5 - 18 [facility] NUCLEATED RBC 0.0 % Normal 11/18/2024 0 - 0.2 [facility] HCT 44.0 % Normal 11/18/2024 40 - 52 [facility] MONOCYTES 3.0 % Normal 11/18/2024 0 - 12 [facility] MCHC 34.3 g/dL Normal 11/18/2024 31 - 36 [facility] IMMATURE GRANULOCYTES 0.0 % Normal 11/18/2024 0 - 0.45 [facility] ABSOLUTE BASO 0.0 K/uL Normal 11/18/2024 0 - 0.2 [facility] ABSOLUTE LYMPHS 1.0 K/uL Below low normal 11/18/2024 1.5 - 4.9 [facility] ABSOLUTE MONOS 0.2 K/uL Normal 11/18/2024 0.2 - 1.5 [facility] GRANULOCYTES 83.0 % Above high normal 11/18/2024 23 - 78 [facility] MCV 99.0 fL Normal 11/18/2024 83 - 102 [facility] EOSINOPHILS 0.0 % Normal 11/18/2024 0 - 6 [facility] MPV 9.0 fL Normal 11/18/2024 8 - 12 [facility] PROSTATE SPECIFIC AG <0.1 ng/mL 07/17/2024 0 - 4 [facility] PROSTATE SPECIFIC AG <0.1 ng/mL Normal 10/01/2023 0 - 4 [facility] PROSTATE SPECIFIC AG 0.1 ng/mL Normal 05/28/2023 0 - 4 [facility] PROSTATE SPECIFIC AG 0.6 ng/mL Normal 02/26/2023 0 - 4 [facility] ABO GROUP (TYPE) IN BLOOD O Normal 01/28/2023 [facility] RH TYPE IN BLOOD POS Normal 01/28/2023 [facility] RH TYPE IN BLOOD POS Normal 01/16/2023 [facility] ABO GROUP (TYPE) IN BLOOD O Normal 01/16/2023 [facility] ANTIBODY SCREEN NEG Normal 01/16/2023 [facility] PROSTATE SPECIFIC AG 7.8 ng/mL Above high normal 01/16/2023 0 - 4 [facility] UREA NITROGEN 23.0 mg/dL Normal 01/16/2023 8 - 24 [facility] POTASSIUM 4.4 mmol/L Normal 01/16/2023 3.6 - 5.1 [facility] GLUCOSE 81.0 mg/dL Normal 01/16/2023 70 - 200 [facility] SODIUM 139.0 mmol/L Normal 01/16/2023 137 - 144 [facility] CREATININE 0.9 mg/dL Normal 01/16/2023 0.6 - 1.2 [facility] CHLORIDE 104.0 mmol/L Normal 01/16/2023 100 - 111 [facility] GLOMERULAR FILTRATION RATE ML/MIN/1.73 SQ M.PREDICTED 97.0 mL/min/1.73m*2 Normal 01/16/2023 60 - [facility] CALCIUM, TOTAL 9.3 mg/dL Normal 01/16/2023 8.4 - 10.2 [facility] BICARBONATE 26.0 mmol/L Normal 01/16/2023 23 - 32 [facility] ANION GAP 9.0 mmol/L Normal 01/16/2023 3 - 11 [facility] AUTO NRBC % 0.0 % Normal 01/16/2023 0 - 0 [facility] NEUTROPHIL % 57.4 % Normal 01/16/2023 40 - 70 [facility] MCV 96.4 fL Normal 01/16/2023 80 - 100 [facility] HEMOGLOBIN 14.6 g/dL Normal 01/16/2023 13 - [address] [facility] [address] 2.4 10*3/uL Normal 01/16/2023 0.7 - 4.5 [facility] RBC DISTRIBUTION WIDTH 12.3 % Normal 01/16/2023 11.6 - 14.8 [facility] MCHC 34.3 g/dL Normal 01/16/2023 32 - 36 [facility] EOSINOPHIL % 2.9 % Normal 01/16/2023 0 - 6 [facility] WHITE CELL COUNT 8.1 10*3/uL Normal 01/16/2023 3.8 - 10.6 [facility] MONOCYTE % 8.6 % Normal 01/16/2023 4 - 12 [facility] LYMPHOCYTE % 30.3 % Normal 01/16/2023 20 - 50 [facility] PLATELET COUNT 232.0 10*3/uL Normal 01/16/2023 150 - 440 [facility] IMMATURE GRANULOCYTE % 0.2 % Normal 01/16/2023 0 - 0.[address] [facility] [address] 0.1 10*3/uL Normal 01/16/2023 0 - 0. 2 [facility] RED CELL COUNT 4.42 10*6/ L Normal 01/16/2023 4.4 - 5.9 [facility] BASOPHILS % 0.6 % Normal 01/16/2023 0 - 2 [facility] HEMATOCRIT 42.6 % Normal 01/16/2023 40 - [address] [facility] [address] 4.6 10*3/uL Normal 01/16/2023 1.4 - 6.[address] [facility] [address] 0.7 10*3/uL Normal 01/16/2023 0.2 - 0.8 [facility] MCH 33.0 pg Normal 01/16/2023 26 - [address] [facility] [address] 0.2 10*3/uL Normal 01/16/2023 0 - 0.3 [facility] POCT CREATININE 0.8 mg/dL Normal 12/28/2022 0.6 - 1.2 [facility] ISTAT SAMPLE TYPE unknown Normal 12/28/2022 C [facility] History of Medication Use Medication Directions Dispensed Refills Start Date End Date Stat leuprolide (3 month) (LUPRON) injection 22.5 mg 04/15/2023 active tadalafiL (CIALIS) 20 mg tablet Take 1 tablet (20 mg total) by mouth 3 (three) times a week. 02/27/2023 06/20/2023 active docusate sodium (Colace) 100 mg capsule Take 1 capsule (100 mg total) by mouth in the morning and 1 capsule (100 mg total) before bedtime. Do all this for 10 days. 01/28/2023 02/08/2023 active oxyCODONE (Roxicodone) 5 mg immediate release tablet Take 5 mg by mouth every 6 (six) hours as needed for moderate pain (4-7) or severe pain (8-10) for up to 3 days. Max Daily Amount: 20 mg 01/28/2023 02/01/2023 active sulfamethoxazole- trimethoprim (BACTRIM DS) 800-160 mg [...] erectile dysfunction. 12/28/2022 12/29/2023 active tadalafiL (CIALIS) 5 mg tablet Take 5 mg by mouth. 12/18/2022 02/26/2023 activ e tadalafil (CIALIS) 5 MG tablet Take 1 tablet (5 mg total) by mouth daily. 12/18/2022 active lisinopril-hydroC HLOROthiazide (PRINZIDE,ZESTORE TIC) tablet 20-12.5 mg 12/02/2022 active lisinopriL-hydroc hlorothiazide (PRINZIDE) 20-12.5 mg per tablet 12/02/2022 active Rudolph-3 1000 MG CAPS Take by mouth. active Problems Problem Status Onset Date Problem Type Date of Resoluti on Source Prostate cancer active 2023-10-[address] [facility] Prostate cancer active 2023-01-[address] [facility] Encounters Encounter Type Encounter Reason Primary Diagnosis Location Date Emergency ABDOMINAL PAIN NAUSEA ABDOMINAL PAIN NAUSEA [facility]. 11/18/2024 Ambulatory Malignant neoplasm of prostate Malignant neoplasm of prostate [facility] 10/16/2024 Ambulatory Malignant neoplasm of prostate Malignant neoplasm of prostate [facility] 07/17/2024 Ambulatory Malignant neoplasm of prostate Malignant neoplasm of prostate [facility] 07/17/2024 Ambulatory Malignant neoplasm of prostate Malignant neoplasm of prostate [facility] 04/16/2024 Ambulatory Malignant neoplasm of prostate Malignant neoplasm of prostate [facility] 01/15/2024 Ambulatory [facility] 12/09/2023 Amb[place] [facility] [place]23 Ambulatory Malignant neoplasm of prostate Malignant neoplasm of prostate [facility] 11/28/2023 Ambulatory Malignant neoplasm of prostate Malignant neoplasm of prostate [facility] [place] 11/28/2023 Ambulatory Malignant neoplasm of prostate Malignant neoplasm of prostate [facility] [place] 10/24/2023 Ambulatory Malignant neoplasm of prostate Malignant neoplasm of prostate [facility] 10/16/2023 Ambulatory Malignant neoplasm of prostate Malignant neoplasm of prostate [facility] 10/16/2023 Ambulatory Malignant neoplasm of prostate Malignant neoplasm of prostate [facility] 10/01/2023 Ambulatory Malignant neoplasm of prostate Malignant neoplasm of prostate [facility] 10/01/2023 Ambulatory Malignant neoplasm of prostate Malignant neoplasm of prostate [facility] 07/16/2023 Ambulatory Malignant neoplasm of prostate Malignant neoplasm of prostate [facility] 05/28/2023 Ambulatory Malignant neoplasm of prostate Malignant neoplasm of prostate [facility] 05/28/2023 Ambulatory Malignant neoplasm of prostate Malignant neoplasm of prostate [facility] 04/17/2023 Ambulatory Malignant neoplasm of prostate Malignant neoplasm of prostate [facility] 04/05/2023 Ambulatory Malignant neoplasm of prostate Malignant neoplasm of prostate [facility] 03/29/2023 Ambulatory Malignant neoplasm of prostate Malignant neoplasm of prostate [facility] 02/26/2023 Ambulatory Malignant neoplasm of prostate Malignant neoplasm of prostate [facility] 02/26/2023 Ambulatory [facility] 02/04/2023 Ambulatory Malignant neoplasm of prostate Malignant neoplasm of prostate [facility] 01/28/2023 Ambulatory Malignant neoplasm of prostate Malignant neoplasm of prostate [facility] 01/16/2023 Ambulatory Malignant neoplasm of prostate Malignant neoplasm of prostate [facility] 01/16/2023 Ambulatory [facility] 01/08/2023 Ambulatory Malignant neoplasm of prostate Malignant neoplasm of prostate [facility] 01/08/2023 Ambulatory Malignant neoplasm of prostate Malignant neoplasm of prostate [facility] 12/28/2022 Ambulatory Malignant neoplasm of prostate Malignant neoplasm of prostate [facility] 12/26/2022 Ambulatory Elevated prostate specific antigen (PSA) Elevated prostate specific antigen (PSA) [facility] [place]/05/2022 Care Team Organization Name Specialty Phone Email Start Date End Da te [facility] directory,Not Primary Care 11/18/2024 [facility] Not directory Primary Care 11/18/2024 [facility] 11/18/2024 [facility] JULIO ARGUETA Primary Care 12/30/2023 [facility] JULIO ARGUETA Primary Care 12/28/2023 [facility] Primary Care 06/12/2023 [facility] MD Primary Care 06/12/2023 [facility] JULIO ARGUETA Primary Care 2023 [facility] NO PCP Primary Care 12/26/202209/2022 [facility] [place] 12/07/2022 09/01/2024 [facility] [place] JULIO ELLIE Primary Care 12/05/2022 023
--- OUTSIDE RECORDS SUMMARY | 2024-12-05 07:20 | XMS_ITS | Clinical Summary ---
Author Organization [facility] Address [address] [place] [address] Care Team Providers Care [employer] Tech Name Role Phone Nilay Hammer Primary Care Provider [phone] Allergies No known active allergies Medications lisinopriL-hydroch [...] Encounters Date Type Department Care Team Description 10/16/2024 3:30 PM EDT Procedure visit [facility] Department of Urology [address] [place] [address] Melvin Dawkins RN Prostate cancer (HCC) (Primary Dx) from Last [...] the money to buy more. Never true 01/29/20 23 Within the past 12 months, t [...] Sign Reading Time Taken Comments Blood Pressure 146/84 07/17/2024 3:43 PM EDT Pulse 89 07/17/2024 3:43 PM EDT Temperature 36.7 C (98.1 F) 10/16/2023 2:17 PM EDT Respiratory Rate 18 01/29/2023 7:00 AM EST Oxygen Saturation 95% 10/16/2023 2:17 PM EDT Inhaled Oxygen Concentration - - Weight 103 kg (228 lb) 07/17/2024 3:43 PM EDT Height 177.8 cm (5' 10 ) 07/17/2024 3:43 PM EDT Body Mass Index 32.71 07/17/2024 3:43 PM EDT Plan of Treatment Upcoming Encounters Date Type Department Care Team (Late st Contact Info) Description 01/15/2025 9:00 AM EST Procedure visit [facility] Department of Urology [address] [place] [id number] Health Maintenance Due Date Last Done Comments CT Colonography 1960 Colonoscopy 1960 Colorectal Cancer Screening 1960 FIT-DNA (Cologuard) 1960 FIT 1960 FOBT 1960 Flex Sigmoidoscopy - 5y 1960 HIV Screening 1960 DTaP,Tdap,and Td Vaccines (1 - Tdap) 1978 Hepatitis C Screening 1978 Pneumococcal Vaccine, 50+ Years (1 of 2 - PCV) 09/06/1979 Zoster Vaccines (1 of 2) 09/06/1979 COVID-19 Vaccine (4 - 2024-2 6 season) 2024 01/10/2021, 05/26/2020, 04/22/2020 Influenza Vaccine (#1) 2024 HPV Vaccines Aged Out No longer [...] Advance Directives For more information, please contact: [phone] * Full Code (Latest Code Status on File) Date Activated Date Inactivated Comments 01/28/2023 11:06 AM 01/29/2023 1:02 PM Care Teams [employer] Relationship Specialty Start Date End Date Nilay Hammer PA [address] [place] [address] PCP - General Primary Care 05/28/23
[2024-12-05 07:59] LABS: Hematocrit 40.5 % (42.0-52.0); Hemoglobin 13.8 g/dl (14.0-18.0); Mean Corpuscular HGB Conc 34.1 g/dl (31.0-36.0); Mean Corpuscular Hemoglobin 33.4 pg (27.0-33.0); Mean Corpuscular Volume 98.1 fL (80.0-98.0); NRBC Abs Auto 0.000 X10*3/uL (0.0-0.012); NRBC Pct Auto 0.0 /100WBC (0.0-0.2); Platelet Count 224 X10*3/uL (160-400); Red Blood Count 4.13 X10*6/uL (4.60-5.80); White Blood Count 4.5 X10*3/uL (4.8-10.8)
[2024-12-05 08:41] LABS: Alanine Aminotransferase 153 U/L (0-40); Albumin Level 4.9 g/dL (3.5-5.0); Alkaline Phosphatase 113 U/L (39-117); Anion Gap 13 (12-20); Aspartate Amino Transferase 127 U/L (5-37); Blood Urea Nitrogen 16 mg/dL (9-16); Calcium 9.7 mg/dL (8.4-10.2); Carbon Dioxide 27 mmol/L (22-29); Chloride 105 mmol/L (96-108); Cholesterol 175 mg/dL (<200); Estimated Glomerular Filt Rate > 60; HDL Cholesterol 34 mg/dL (>40); Potassium 4.3 mmol/L (3.3-5.1); Sodium 141 mmol/L (135-145); Total Protein 7.8 g/dL (6.5-8.0); Triglycerides 190 mg/dL (<150)
[2024-12-05 10:15] LABS: Microalbum/Creatinine Ratio Ur 181.7 ug/mg cr (<30)
[2024-12-09 14:44] LABS: Anti Nuclear Antibody Screen POSITIVE (NEGATIVE); Anti Nuclear Antibody Titer 1:320 titer
== END 2024-12-05 07:18 | disposition home or self-care (01) ==
LOC: HO.LAB 07:17
PROVIDERS: PCP Physician Assistant; Visit Provider Physician Assistant
DX: I10 Essential (primary) hypertension (principal); M25.50 Pain in unspecified joint; R73.09 Other abnormal glucose; E78.1 Pure hyperglyceridemia
CPT/HCPCS: 36415; 80053; 80061; 82043; 82570; 83036; 85027; 86038; 86039; 86200; 86431